=== PATIENT | female | born 1995 | race Caucasian/White ===

== ENCOUNTER 2023-08-28 16:29 | Day surgery (SDC) | payer BC, SELFPAY ==
[2023-08-28 16:32] VITALS: BP 130/82; PULSE 85; RESP 18; TEMP 36.4; O2SAT 98; BMI 25.0
--- NOTE | 2023-08-28 16:55 | CRLHL7_ITS ---
For Patients: As a result of the Century Cures Act, medical imaging exams and procedure reports are released immediately into your electronic medical record. You may view this report before your referring provider. If you have questions, please contact your health care provider. INDICATION: Bleeding in . TECHNIQUE: Ultrasound OB pelvis transvaginal. Real-time arias-scale imaging of the pelvis was performed. Permanently recorded images are archived. COMPARISON: None. FINDINGS: This is a 2.4 cm fluid collection within the endometrium with a thin echogenic rim, which could represent a poorly formed decidual reaction. No yolk sac or pole is identified within the fluid collection. There is heterogeneous echogenicity surrounding the fluid collection with questionable small cystic foci. Probable corpus luteum within the right ovary. Unremarkable left ovary. No significant free fluid within the pelvis. IMPRESSION: Abnormal exam. No intrauterine gestation identified. 2.4 cm fluid collection within the endometrium without definitive or normal appearing decidual reaction. In addition, the tissue surrounding the fluid collection is heterogeneous with small cystic areas. Differential considerations include a failed intrauterine gestation with a large surrounding subchorionic hemorrhage or a molar . Recommend correlation with beta HCG level/trend and gynecology consultation. Dictated by Charbel Dickens MD @ 08/28/2023 7:06:09 PM (Electronically Signed)
[2023-08-28 17:02] LABS: Basophils Absolute Auto 0.01 K/uL (0.00-0.30); Basophils Percent Auto 0.1 % (0.0-3.0); Eosinophils Percent Auto 1.1 % (0.0-7.0); Hemoglobin* 13.6 gm/dL (12.0-16.0); Immature Granulocytes Abs Auto 0.03 K/uL (0.00-0.30); Immature Granulocytes Pct Auto 0.3 %; Lymphocytes Percent Auto 17.1 % (20-44); Mean Corpuscular HGB Conc 33 gm/dL (32-36); Mean Corpuscular Hemoglobin 30 pg (26-34); Mean Corpuscular Volume 89 fL (80-100); Monocytes Percent Auto 5.2 % (0.0-11.0); Neutrophils Percent Auto 76.2 % (42.0-72.0); Platelet Count* 217 K/uL (140-440); Red Blood Count 4.61 m/uL (4.00-5.20); White Blood Count* 8.81 K/uL (4.50-11.00)
--- NOTE | 2023-08-28 17:04 | ED.PREGNANCY ---
HPI - General Time Seen by Provider: 17:04 Date Seen: 08/28/23 Chief complaint: Vaginal Bleeding Stated complaint: 11 wks preg-bleeding, cramping Time Seen by Provider: 08/28/23 16:35 Source: patient and RN notes reviewed Mode of arrival: ambulatory Limitations: no limitations History of Present Illness HPI Narrative: Went to see patient, ultrasound was already here to see the patient, will see her after she has had her ultrasound. Per nursing staff patient is experiencing vaginal bleeding, has not had an ultrasound yet. Feel it is important that she have the imaging done, will see her soon as she comes back to the department. Patient is a 28-year-old female that started to have some vaginal spotting with urination today. She states her menses were like this, she would just have some bleeding when she would urinate. She is having some cramping with some low back pain, does have some left-sided low abdominal pain. Patient states her last menstrual period was May 12 to May 17. She was scheduled to see someone for her 1st OB appointment coming up on September 11. She was seen in urgent care earlier in July and was having severe nausea vomiting, dry heaving. She thought she had a GI bug that was precipitated or worsened by . She has had 1 before, child is 8 years old. She has had no imaging prior to today. I was able to review the findings from the entry level assistant manager but cautioned patient that we need the radiologist over-read this. She is 15 weeks and 3 days based on her LMP but the ultrasound is showing no fetus there is a very irregular sac maybe measuring about 6 week in size. The entry level assistant manager did work wonder about the possibility of molar issues here. I have reviewed this with the patient and her male significant other that is here with her. We did review that molar pregnancies are aberrant tissue, there is no fetus currently. We really need the radiologist over read this. I will likely call the consulting database administrator on-call after I have talked to the patient and finished examining her. She understands she will likely get a chance to meet her hopefully at some point this evening. Complaint: abdominal pain and vaginal bleeding Date of last menstrual period: 05/12/23 Related Data : 2 Para: 1 Home Medications Medication Instructions Recorded Confirmed dextroamphetamine-amphetamine ER 1 cap PO BID 08/10/23 08/10/23 20 mg 24hr capsule,extend release multivitamin 1 tab PO QAM 08/10/23 08/10/23 vit B complex 100 combo no.2 100 tab PO 08/10/23 08/10/23 mg tablet,extended release (Balanced B-100 Complex) Allergies Allergy/AdvReac Type Severity Reaction Status Date / Time acetaminophen [From Vicodin] Allergy Verified 08/10/23 15:05 glucosamine Allergy Verified 08/10/23 15:05 hydrocodone [From Vicodin] Allergy Verified 08/10/23 15:05 Iodinated Contrast Media Allergy Verified 08/10/23 15:05 iodine Allergy Verified 08/10/23 15:05 levofloxacin Allergy Verified 08/10/23 15:05 metrizamide Allergy Verified 08/10/23 15:05 metronidazole Allergy Verified 08/10/23 15:05 morphine Allergy Verified 08/10/23 15:05 mushroom Allergy Verified 08/10/23 15:05 shellfish derived Allergy Verified 08/10/23 15:05 tree nut Allergy Verified 08/10/23 15:05 Review of Systems Status of ROS: Reports: 6 or more systems reviewed and unremarkable except as noted in History and below [facility] Medical History (Updated 08/28/23 @ 21:06 by Elidia Dyson MD) Exercise-induced asthma ?J45.990 - Exercise induced bronchospasm (ICD-10) Anemia ?D64.9 - Anemia, unspecified (ICD-10) CSF leak from nose ?G96.01 - Cranial cerebrospinal fluid leak, spontaneous (ICD-10) Meningitis (2017) ?G03.9 - Meningitis, unspecified (ICD-10) Surgical History (Updated 08/28/23 @ 21:06 by Elidia Dyson MD) History of section ?Z98.891 - History of uterine scar from previous surgery (ICD-10) Social History Smoking Status: Never smoker Do you use any of these nicotine containing products: None Second hand tobacco smoke exposure: No How often do you have a drink containing alcohol: monthly or less How many standard drinks containing alcohol do you have on a typical day: 1 or 2 How often do you have six or more drinks on one occasion: Never AUDIT-C Alcohol total score: 1 Non-prescribed substance use: denies use Little interest or pleasure in doing things: not at all Feeling down, depressed, or hopeless: not at all service: No Exam Const: Vital Signs, click to edit/add: Vital Signs - 24 hr 08/28/23 16:32 08/28/23 17:40 08/28/23 18:46 Temperature 97.5 F L Pulse Rate [Pulse Oximeter] 85 76 Respiratory Rate 18 18 Blood Pressure [Ri ght Upper Arm] 130/82 121/74 Pulse Oximetry 98 100 100 Oxygen Delivery Me thod Room Air Room Air 08/28/23 20:49 Temperature Pulse Rate [Pulse Oximeter] 69 Respiratory Rate 16 Blood Pressure [Ri ght Upper Arm] 105/65 Pulse Oximetry 98 Oxygen Delivery Me thod Room Air Anxious and tearful 28-year-old female but otherwise alert interactive. Certainly very pleasant. Sclera clear, conjugate gaze, face atraumatic. Neck supple, no masses noted. Lungs are clear, good air entry, no wheezing or crackles. CV regular rate and rhythm, no murmur, normal S1-S2, no S3 or S4. Patient is sitting a bit more upright on examination, abdomen is not tender, there is no rebound or guarding. The way she is sitting, do not feel any definitive organomegaly. Patient was ambulatory into the ED of her own accord. Documenting provider has reviewed patient's vital signs: yes Course Course ED Course: Will await her blood work, have ordered a CBC, blood type and quantitative hCG. We need to await the Radiology over-read. Will plan on talking to obstetrics. Consultations Consultation #1: Did speak with Dr. Dyson from OB. She and I both looked at the ultrasound, certainly seems abnormal. Her CBC is normal, waiting the quantitative hCG. She did ask that I order a TSH which I have added on. 1936pm Dr. Dyson here from OB, will be seeing patient and come up with formal plan for management. Time: 17:36 Consultation #2: Plan will be to admit patient for pain management overnight, D&C tomorrow during stability of full OR crew and hospital staff. Time: 20:33 Vital Signs Vital signs: Initial Vital Signs Temperature 97.5 F L 08/28/23 16:32 Temperature Source Temporal Artery Scan 08/28/23 16:32 Pulse Rate 85 08/28/23 16:32 Pulse Rhythm Regular 08/28/23 16:32 Respiratory Rate 18 08/28/23 16:32 Blood Pressure 130/82 08/28/23 16:32 Blood Pressure Mean 98 08/28/23 16:32 Blood Pressure Position Sitting 08/28/23 16:32 Pulse Oximetry 98 08/28/23 16:32 Oxygen Delivery Method Room Air 08/28/23 16:32 Vital Signs Temperature 97.5 F L 08/28/23 16:32 Pulse Rate 85 08/28/23 16:32 Respiratory Rate 18 08/28/23 16:32 Blood Pressure 130/82 08/28/23 16:32 Pulse Oximetry 98 08/28/23 16:32 Oxygen Delivery Method Room Air 08/28/23 16:32 Temperature 97.3 F L 08/29/23 00:45 Pulse Rate 69 08/29/23 00:45 Respiratory Rate 16 08/29/23 00:45 Blood Pressure 117/66 08/29/23 00:45 Pulse Oximetry 100 08/29/23 00:45 Oxygen Delivery Method Room Air 08/29/23 00:45 Medications Administered Medications: Generic Name Dose Route Start Last Admin Trade Name Fregracie PRN Reason Stop Dose Admin Fentanyl 25 mcg 08/28/23 22:14 08/28/23 23:21 Fentanyl 100 Mcg/2 Ml Inj IVP 25 mcg Q2H PRN Administration Lactated Ringer's 1,000 mls @ 125 mls/hr 08/28/23 22:15 08/28/23 23:20 Lactated Ringers 1000 Ml IV 125 mls/hr .Q8H SANCHEZ Administration Discontinued Medications Generic Name Dose Route Start Last Admin Trade Name Fregracie PRN Reason Stop Dose Admin Acetaminophen 1,000 mg 08/28/23 18:24 08/28/23 18:31 Acetaminophen 500 Mg Tablet PO 08/28/23 18:25 1,000 mg ONCE ONE Administration Fentanyl 50 mcg 08/28/23 20:30 08/28/23 20:47 Fentanyl 100 Mcg/2 Ml Inj IVP 08/28/23 20:31 50 mcg ONCE ONE Administration Ondansetron HCl 4 mg 08/28/23 20:30 08/28/23 20:47 Ondansetron 2 Mg/Ml Inj IVP 08/28/23 20:31 4 mg ONCE ONE Administration MDM - OB/Uterine Contractions Lab Data Attestation: I reviewed the patient's lab results. Labs: Lab Results 08/28/23 08/28/23 Range/Units 16:58 17:47 WBC 8.81 (4.50-11.00) K/uL RBC 4.61 (4.00-5.20) m/uL Hgb 13.6 (12.0-16.0) gm/dL Hct 41.0 (33.0-51.0) % MCV 89 (80-100) fL MCH 30 (26-34) pg MCHC 33 (32-36) gm/dL RDW Coeff of Al 13.0 (11.5-15.5) % Plt Count 217 (140-440) K/uL Neut % (Auto) 76.2 H (42.0-72.0) % Lymph % (Auto) 17.1 L (20-44) % Stanton % (Auto) 5.2 (0.0-11.0) % Eos % (Auto) 1.1 (0.0-7.0) % Baso % (Auto) 0.1 (0.0-3.0) % Neut # (Auto) 6.70 (1.7-7.0) K/uL Lymph # (Auto) 1.50 (0.90-2.90) K/uL Stanton # (Auto) 0.50 (0.00-0.90) K/UL Eos # (Auto) 0.10 (0.00-0.50) K/uL Baso # (Auto) 0.01 (0.00-0.30) K/uL Abs Immat Gran (auto) 0.03 (0.00-0.30) K/uL Imm/Tot Granulo (auto) 0.3 % TSH 1.480 (0.270-4.20) uIU/mL HCG, Quant 7880.40 mIU/mL Lab Acknowledgement Test Added Blood Type A Negative Imaging Data US OB limited: Attestation: I have reviewed the pertinent imaging results. Radiologist's impression: Patient: MASSIMO LEMUS Facility:?[facility] Patient ID:?[id number] Site Patient ID:?[id number]. Site :?[id number] Study:?US OB Pelvis -08/28/2023 5:34:33 PM Ordering Physician:Abrahan Irwin Final Report: INDICATION: Bleeding in . TECHNIQUE: Ultrasound OB pelvis transvaginal. Real-time arias-scale imaging of the pelvis was performed. Permanently recorded images are archived. COMPARISON: None. FINDINGS: This is a 2.4 cm fluid collection within the endometrium with a thin echogenic rim, which could represent a poorly formed decidual reaction. No yolk sac or pole is identified within the fluid collection. There is heterogeneous echogenicity surrounding the fluid collection with questionable small cystic foci. Probable corpus luteum within the right ovary. Unremarkable left ovary. No significant free fluid within the pelvis. IMPRESSION: Abnormal exam. No intrauterine gestation identified. 2.4 cm fluid collection within the endometrium without definitive or normal appearing decidual reaction. In addition, the tissue surrounding the fluid collection is heterogeneous with small cystic areas. Differential considerations include a failed intrauterine gestation with a large surrounding subchorionic hemorrhage or a molar . Recommend correlation with beta HCG level/trend and gynecology consultation. Dictated by Charbel Dickens MD @ 08/28/2023 7:06:09 PM (Electronic Signature) Discharge Plan Discharge Clinical Impression: Molar Patient Disposition: Admitted As Observation
[2023-08-28 17:16] LABS: Slide Review Reflex No
[2023-08-28 17:40] VITALS: O2SAT 100
--- OUTSIDE RECORDS SUMMARY | 2023-08-28 18:14 | XMS_ITS | Continuity of Care Document ---
Author Name Unknown Organization [facility] Address [address] [place] [address] Phone Care Team Providers Care [employer] Scout Name Role Phone Diogenes Thomas Unavailable Unavailable Procedures Procedure Date Initial Hospital Care, Low Advance Directives Directive Yes / No Effective Date File Name No Information Encounters Encounter Description Practice Location Reason(s) For Visit Diagnoses Date Provider Providers Copied on Encounter Initial Hospital Care, [facility], [address], [place], [place], [id number], [place] tel:[phone] [facility] No Information Chris Shetty. [facility], [address], [place], [place], [id number], [place]. tel:[phone] Referring Provider: Reji Paredes, [employer] [address] [facility] [address], [place], [address]. tel:[phone] Family History Family Member Type Diagnosis Age At Onset No Information Payers Payer name Insurance type Covered libertarian ID Ian blakeelizabeth(s) [employer] ([employer]H) [id number] Social History Type Description Quantity Date Captured Comments Sex Female Smoking Status No Information Chief Complaint And Reason For Visit No Information Reason For Referral Reason For Referral No Information History Of Present Illness Encounter Date Complaint History Of Prese nt Illness No Information Functional Status Date Functional Assessmen t No Information Instructions Date Instruction Additional Infor mation No Information Assessments Type Assessment Date No Information Patient Care Teams Name Effective Dates (start - stop) Status Members No Information
--- OUTSIDE RECORDS SUMMARY | 2023-08-28 18:14 | XMS_ITS | Continuity of Care Document ---
Author Name Unknown Organization [facility] Address [address] [place] [address] Phone Care Team Providers Care Hospice Chaplain Name Role Phone Diogenes Thomas Unavailable Unavailable Procedures Procedure Date Initial Hospital Care, Low Advance Directives Directive Yes / No Effective Date File Name No Information Encounters Encounter Description Practice Location Reason(s) For Visit Diagnoses Date Provider Providers Copied on Encounter Initial Hospital Care, [facility] [facility], [address], [place], [place], [id number], [place] tel:[phone] [facility] [place] [facility] No Information Chris Shetty. [facility], [address], [place], [place], [id number], [place]. tel:[phone] Referring Provider: Reji Paredes, [facility] [address] [facility] [address], [address]. tel:[phone] Family History Family Member Type Diagnosis Age At Onset No Information Payers Payer name Insurance type Covered republican ID Ian blakeelizabeth(s) [employer] [id number] Social History Type Description Quantity Date Captured [...]
[2023-08-28] MEDS: ACETAMINOPHEN 500 MG TABLET 1000 MG PO (18:31)
[2023-08-28 18:46] VITALS: BP 121/74; PULSE 76; RESP 18; O2SAT 100
--- NOTE | 2023-08-28 20:08 | ED.NURSE ---
pt report given off to oncoming RN
--- NOTE | 2023-08-28 20:24 | P.GYNCN_ITS ---
TOGGLE PRESS OPERATOR - CN: HPI Data of Consult Time Seen by Provider: 20:00 Date Seen: 08/28/23 Patient: Other Consult date: 08/28/23 Requesting Physician: Alida Palmer MD Primary Care Provider: Not a Local Provider Consult Narrative Reason for consult: vaginal bleeding and early complication Narrative: Queenie Robledo is a 28 year old female who presented to the emergency room complaining of bleeding in early . She thought she was approximately 11 weeks along. By last menstrual period, her estimated gestational age is 15 3/7 weeks. She has not yet established care, and is scheduled for a 1st OB visit on September 11 in [place] with a certified nurse sleeve fixer. The patient was not using contraception at the time of conception. She denies any issues during early . She was seen in urgent care on 08/10/2023 for chest pain, chest tightness or shortness of breath, and cough. She was thought to have a viral upper respiratory infection as well as yeast vaginitis. Conservative management was recommended. Her symptoms resolved spontaneously. Last menstrual period began on 05/12/2023. She states that she was menstruating at regular monthly intervals prior to conception. She thought she was about 11 weeks gestation by her presumed conception date. Planned . She has had some nausea and vomiting throughout the 1st trimester. She was working today, and developed some low abdominal cramping and back pain. This afternoon, she was alarmed to notice some vaginal bleeding when she went to the bathroom. She denies fevers or chills, dysuria, or current nausea and vomiting. She is hungry, having not eaten lunch or dinner today. She denies headaches, palpitations or current chest pain or shortness of breath. She felt a little warm and flushed while we were talking, but it attributes that to anxi ety. OBSTETRIC HISTORY: The patient had a primary delivery for breech at term 8 years ago. course was complicated by separation of her Pfannenstiel incision, and she needed a wound VAC for about 3 weeks. Past medical history is significant for ADHD and exercise-induced asthma. She had anemia during and immediately with her last . 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 She has stated allergies to levofloxacin and morphine. EMR also lists reactions to glucosamine, hydrocodone, iodinated contrast media, metrizamide, metronidazole, mushrooms, shellfish, and tree nuts. The patient was found to be hemodynamically stable upon her arrival to the emergency department. Labs were notable for an HCG level of 7880.4, blood type A negative, hemoglobin 13.6, platelets 217, and TSH 1.48. A limited OB ultrasound was performed which demonstrated a 2.4 cm fluid collection within the endometrium with a thin echogenic rim and surrounding heterogeneous echogenicity with questionable small cystic foci concerning for molar . There was no evidence of yolk sac or pole. There was a probable corpus luteum cyst within the right ovary an unremarkable left ovary. No significant free fluid was seen in the pelvis. cc:: CC: Review of Systems Status of ROS: Reports: 10 or more systems reviewed and unremarkable except as noted in History and below [facility] Medical History (Updated 08/28/23 @ 21:06 by Elidia Dyson MD) Exercise-induced asthma ?J45.990 - Exercise induced bronchospasm (ICD-10) Anemia ?D64.9 - Anemia, unspecified (ICD-10) CSF leak from nose ?G96.01 - Cranial cerebrospinal fluid leak, spontaneous (ICD-10) Meningitis (2017) ?G03.9 - Meningitis, unspecified (ICD-10) Surgical History (Updated 08/28/23 @ 21:06 by Elidia Dyson MD) History of section ?Z98.891 - History of uterine scar from previous surgery (ICD-10) Social History Smoking Status: Never smoker Do you use any of these nicotine containing products: None Second hand tobacco smoke exposure: No How often do you have a drink containing alcohol: monthly or less How many standard drinks containing alcohol do you have on a typical day: 1 or 2 How often do you have six or more drinks on one occasion: Never AUDIT-C Alcohol total score: 1 Non-prescribed substance use: denies use Little interest or pleasure in doing things: not at all Feeling down, depressed, or hopeless: not at all service: No Meds Home Medications and Allergies Home Medications Medication Instructions Recorded Confirmed Type dextroamphetamine-amphetamine ER 1 cap PO BID 08/10/23 08/10/23 History 20 mg 24hr capsule,extend release multivitamin 1 tab PO QAM 08/10/23 08/10/23 History vit B complex 100 combo no.2 100 tab PO 08/10/23 08/10/23 History mg tablet,extended release (Balanced B-100 Complex) Allergies Allergy/AdvReac Type Severity Reaction Status Date / Time acetaminophen [From Vicodin] Allergy Verified 08/10/23 15:05 glucosamine Allergy Verified 08/10/23 15:05 hydrocodone [From Vicodin] Allergy Verified 08/10/23 15:05 Iodinated Contrast Media Allergy Verified 08/10/23 15:05 iodine Allergy Verified 08/10/23 15:05 levofloxacin Allergy Verified 08/10/23 15:05 metrizamide Allergy Verified 08/10/23 15:05 metronidazole Allergy Verified 08/10/23 15:05 morphine Allergy Verified 08/10/23 15:05 mushroom Allergy Verified 08/10/23 15:05 shellfish derived Allergy Verified 08/10/23 15:05 tree nut Allergy Verified 08/10/23 15:05 TOGGLE PRESS OPERATOR - Exam Physical Exam: Vital signs: Temp Pulse Resp BP Pulse Ox O2 Del Method 97.5 F L 76 18 121/74 100 Room Air 08/28/23 16:32 08/28/23 18:46 08/28/23 18:46 08/28/23 18:46 08/28/23 18:46 08/28/23 18:46 Constitutional: Constitutional: no acute distress and cooperative Routine Respiratory Exam: Respiratory: Present CTA bilaterally Routine Cardiovascular Exam: Cardiovascular: Present RRR Routine Abdominal Exam: Abdominal: Present soft and tenderness (Diffusely, left greater than right); Absent guarding or rebound Routine Exam: Comments: Normal external female genitalia. On bimanual exam, the uterus is mildly enlar ged, 15-16 week size, and tender. Adnexa could not be fully palpated due to patient discomfort. Routine Extremities Exam: Extremities: Present normal inspection Routine Skin Exam: Skin: Present intact Routine Neurological Exam: Neurological: Present alert and oriented X3 Routine Psychiatric Exam: Psychiatric: Present anxious TOGGLE PRESS OPERATOR - Results Labs Labs: Short CBC 08/28/23 Range/Units 16:58 WBC 8.81 (4.50-11.00) K/uL Hgb 13.6 (12.0-16.0) gm/dL Hct 41.0 (33.0-51.0) % Plt Count 217 (140-440) K/uL Assessment and Plan Assessment and plan (1) Molar : Status: Acute Plan 1. The patient will be admitted for pain control overnight. Pain medications overnight can include IV fentanyl. 2. I explained the diagnosis to the patient. Based on her imaging studies, it appears that she has a molar . We discussed molar pregnancies, both complete and partial, and the risk of developing gestational trophoblastic neoplasia untreated. Evacuation of the uterus is recommended for treatment, along with a period of monitoring of HCG levels. The length of monitoring that will be recommended will be dependent on the final pathology report. The patient understands that this will delay future childbearing until the end of the monitoring period. Because she is in the 2nd trimester at the time of diagnosis, she is at risk for hemorrhage or cardiopulmonary complications at the time of surgery. Prophylactically, utero tonic medications would be recommended, such as IV Pitocin with IV fluids, preoperative tranexamic acid, and availability of medications such as Methergine or misoprostol. We also discussed the possibility of intrauterine balloon tamponade if needed, or even uterine artery ligation or hysterectomy if she were to experience life- threatening hemorrhage during surgery that could not be controlled with more conservative measures. From Up-To-Date, ...in the second trimester, approximately 2 percent of patients treated by evacuation develop cardiopulmonary symptoms, including chest pain, dyspnea, tachypnea, and tachycardia. Respiratory distress after uterine evacuation is usually attributed to trophoblastic embolization. Respiratory problems can also be due to massive fluid replacement, complications of thyroid storm, or preeclampsia... At this time, the patient has no signs or symptoms of preeclampsia, and her TSH level is normal, however, given the potential risks of bleeding and cardiopulmonary problems, I believe that surgery would be best done during the daytime hours when there are additional personnel available in the event of an emergency. 3. The patient and I discussed the suction curettage procedure in some detail. If all goes well, she potentially could be discharged the same day as surgery. She will need to be NPO after midnight in preparation for surgery. Because I will not be available tomorrow, I have discussed this patient with my partner, Dr. Rendon, who will be assuming care in the morning. The household assistant was notified of the pending admission and request for surgery tomorrow, and will contact the OR regarding scheduling.
[2023-08-28] MEDS: ONDANSETRON 2 MG/ML inj 4 MG IVP (20:47)
[2023-08-28] MEDS: fentaNYL 100 MCG/2 ML inj 50 MCG IVP (20:47)
[2023-08-28 20:49] VITALS: BP 105/65; PULSE 69; RESP 16; O2SAT 98
[2023-08-28] MEDS: LACTATED RINGERS 1000 ML 1,000 ML 125 ML IV (23:20)
[2023-08-28] MEDS: fentaNYL 100 MCG/2 ML inj 25 MCG IVP (23:21)
[2023-08-29] VITALS (28 sets, daily range): BP systolic 102–120; BP diastolic 51–74; PULSE 52–97; RESP 14–20; TEMP 36.1–36.8; O2SAT 97–100; BMI 24.7
[2023-08-29] MEDS: fentaNYL 100 MCG/2 ML inj 25 MCG IVP ×3 (03:07→19:41)
--- NOTE | 2023-08-29 07:36 | PC.NURSE ---
End of shift [id number] ? Pt arrived from ED at approximately 21:20. Spouse at bedside. Pt alert, oriented, and cooperative. Up independently in room and to bathroom. Pt reported pain in lower back and abdomen that increased when up to the bathroom. Pain managed with interventions in MAR and aqua K pad with verbalized improvement. Pt reports scant bloody discharge in pad and moderate amount of bloody discharge while using bathroom. VSS, afebrile during shift. Tolerating NPO diet and room air. Pt appears anxious and tearful when discussing current , RN able to provide verbal support. Pt observed to sleep during shift, appears to be resting comfortably at end of shift. ?
[2023-08-29] MEDS: LACTATED RINGERS 1000 ML 1,000 ML 125 ML IV (07:47)
--- OUTSIDE RECORDS SUMMARY | 2023-08-29 09:17 | XMS_ITS | Continuity of Care Document ---
Author Name Unknown Organization [facility] Address [address] [place] [address] Phone Care Team Providers Care Rags Laborer Name Role Phone Diogenes Thomas Unavailable Unavailable Procedures Procedure Date Initial Hospital Care, Low Advance Directives Directive Yes / No Effective Date File Name No Information Encounters Encounter Description Practice Location Reason(s) For Visit Diagnoses Date Provider Providers Copied on Encounter Initial Hospital Care, [facility], [address], [place], [place], [id number], [place] tel:[phone] [facility] No Information Chris Shetty. [facility], [address], [place], [place], [id number], [place]. tel:[phone] Referring Provider: Reji Paredes, [employer] [address] [facility] [address], [place], [address]. tel:[phone] Family History Family Member Type Diagnosis Age At Onset No Information Payers Payer name Insurance type Covered democrat ID Ian blakeelizabeth(s) [employer] [id number] Social History Type Description Quantity Date Captured [...]
[2023-08-29] MEDS: ONDANSETRON 2 MG/ML inj 4 MG IVP ×2 (09:27→12:55)
--- NOTE | 2023-08-29 10:53 | P.GYNPN_ITS ---
Progress Note: A&P Assessment and plan (1) Molar : Status: Acute Assessment and Plan: Suspected on US. Plan is for suction uterine curettage under ultrasound guidance today. We discussed risks of procedure, including bleeding, hemorrhage requiring transfusion, infection, uterine perforation, risk of persistent gestational trophoblastic neoplasia, and cardiopulmonary collapse. We discussed the need for monitoring of HCG levels weekly after this procedure. We discussed likely postoperative recovery and restrictions. Consent form was reviewed with and signed by patient. In preparation for surgery, I have requested 2 units of cross-matched packed red blood cells. I plan to use tranexamic acid after induction of anesthesia. I have spoken to my Anesthesia colleagues about the risks inherent in management of molar , and they plan to use general anesthesia for this patient. I will use rectal misoprostol at end procedure, and IV Pitocin will be prepared. Doxycycline for preoperative prophylaxis. If this is truly a molar , there is to production of RBCs. Given that we have no certainty of this at this moment, I did opt to give patient RhoGam. Given her uncertain postoperative course, and the possibility of complications, I recommended change to medical-surgical recovery as her status. (2) Pelvic pain: Status: Acute VETERINARY X RAY OPERATOR- PN:Subj Non-OR Subjective Time Seen by Provider: 08:30 Date Seen: 08/29/23 Interval history: Queenie is a 28-year-old woman on hospital day #2 after admission for pelvic pain and uterine bleeding in the setting of suspected molar in the second trimester. She has been NPO since midnight. She continues to have some LLQ pain. She is accompanied by her and [id number]. She had some SOB a few weeks ago, none current. VETERINARY X RAY OPERATOR-PN: Obj Exam Physical Exam: Vital signs: Temp Pulse Resp BP Pulse Ox O2 Del Method 97.9 F 60 16 107/61 100 Room Air 08/29/23 07:00 08/29/23 07:00 08/29/23 07:00 08/29/23 07:00 08/29/23 07:00 08/29/23 07:00 Narrative: General: Pleasant, no acute distress Heart: Regular rate and rhythm, no murmur or gallop Lungs: Clear to auscultation bilaterally Abdomen: Soft, uterine fundus palpable approximately 5 cm below umbilicus, tender to the touch. Lower extremities: No edema or erythema VETERINARY X RAY OPERATOR - PN: Obj Data Labs Labs: Laboratory Results - last 24 hr 08/28/23 08/28/23 16:58 17:47 WBC 8.81 RBC 4.61 Hgb 13.6 Hct 41.0 MCV 89 MCH 30 MCHC 33 RDW Coeff of Al 13.0 Plt Count 217 Neut % (Auto) 76.2 H Lymph % (Auto) 17.1 L Johnston % (Auto) 5.2 Eos % (Auto) 1.1 Baso % (Auto) 0.1 Neut # (Auto) 6.70 Lymph # (Auto) 1.50 Johnston # (Auto) 0.50 Eos # (Auto) 0.10 Baso # (Auto) 0.01 Abs Immat Gran (auto) 0.03 Imm/Tot Granulo (auto) 0.3 TSH 1.480 HCG, Quant 7880.40 Lab Acknowledgement Test Added Blood Type A Negative Crossmatch (AHG) See Detail Imaging US - abdomen: Attestation: I have reviewed the pertinent imaging results. My impression: The endometrial stripe is indistinct and markedly thickened in the fundal region. Uterus is enlarged and retroverted. Radiologist's impression: FINDINGS: This is a 2.4 cm fluid collection within the endometrium with a thin echogenic rim, which could represent a poorly formed decidual reaction. No yolk sac or pole is identified within the fluid collection. There is heterogeneous echogenicity surrounding the fluid collection with questionable small cystic foci. Probable corpus luteum within the right ovary. Unremarkable left ovary. No significant free fluid within the pelvis. IMPRESSION: Abnormal exam. No intrauterine gestation identified. 2.4 cm fluid collection within the endometrium without definitive or normal appearing decidual reaction. In addition, the tissue surrounding the fluid collection is heterogeneous with small cystic areas. Differential considerations include a failed intrauterine gestation with a large surrounding subchorionic hemorrhage or a molar . Recommend correlation with beta HCG level/trend and gynecology consultation.
[2023-08-29] MEDS: LACTATED RINGERS 1000 ML 1,000 ML 75 ML IV (11:40)
[2023-08-29] MEDS: DOXYCYCLINE HYCLATE 200 MG in 0.9 % SODIUM CHLORIDE 250 ml 250 ML 250 MG IVPB (12:05)
--- NOTE | 2023-08-29 12:48 | W.ANESCHARGE ---
Anesthesia Charges Start Date/Time Anesthesia Start Date: 08/29/23 Anesthesia Start Time: 11:40 Stop Date/Time Anesthesia Stop Date: 08/29/23 Anesthesia Stop Time: 12:39 Summary Emergency: NURSE HEALTHCARE MANAGER
[2023-08-29] MEDS: fentaNYL 100 MCG/2 ML inj 50 MCG IVP (13:08)
[2023-08-29] MEDS: LACTATED RINGERS 1000 ML 1,000 ML 35 ML IV (13:17)
--- NOTE | 2023-08-29 13:17 | P.GYNPRC_ITS ---
Procedure Note Date of procedure: 08/29/23 Procedure Description: Preoperative diagnosis: Incomplete , suspected molar Postoperative diagnosis: Same Procedure: Suction uterine curettage under ultrasound guidance Surgeon: Elo Rendon MD Anesthesia: General IV fluids: 600 mL crystalloid EBL: 20 mL Urine output: 30 mL Findings: 1. Exam under anesthesia revealed a mobile, retroverted uterus that was consistent in size with 12 weeks' gestation. There are no palpable adnexal m asses. 2. Moderate amount of products of conception returned with suction curettage. Complications: None Procedure in detail: Patient was taken to the operating with IV running. She had received a single dose of IV doxycycline in preoperative prophylaxis. She was placed in dorsal lithotomy position. General anesthesia was administered. She was prepped and draped in the usual sterile fashion. Exam under anesthesia was performed for the above-noted findings. Speculum was inserted. Cervix was grasped along its anterior lip with single-tooth tenaculum. The cervix was serially dilated to 11 [place]. A size 10 rigid suction cannula was then passed through the cervix to the uterine fundus. Suction was applied, and the suction cannula was withdrawn along the path of insertion. This was repeated several more times, without obvious return of products of conception on the last 2 passes. Ultrasound images revealed a thin, uniform appearance to the endometrial stripe. Procedure was deemed complete. The tenaculum was removed from the anterior lip the cervix, and hemostasis was achieved with a combination of pressure with ring forceps and silver nitrate. The speculum was then removed from the vagina. Patient tolerated procedure well and was taken recovery area in stable condition.
[2023-08-29] MEDS: KETOROLAC 30 MG/ML inj IVP ×2 (14:36→20:56)
[2023-08-29 15:15] LABS: Albumin* 4.3 g/dL (3.3-5.0); Chloride* 108 mmol/L (96-114); Sodium* 137 mmol/L (135-149)
[2023-08-29 15:17] LABS: Creatinine* 0.4 mg/dL (0.5-1.5); Est. Creatinine Clearance* 194.27; Estimated Glomerular Filt Rate 137 ml/min
[2023-08-29 15:18] LABS: Alanine Aminotransferase* 20 U/L (4-35); Alkaline Phosphatase* 45 U/L (40-150); Anion Gap 7 mEq/L (7-15); Aspartate Amino Transferase* 35 U/L (12-35); Bilirubin Total* 0.6 mg/dL (0.1-1.5); Blood Urea Nitrogen* 7 mg/dL (5-24); Calcium* 8.8 mg/dL (8.4-10.6); Carbon Dioxide* 22 mmol/L (20-32); Glucose* 85 mg/dL (60-115); Potassium* 4.5 mmol/L (3.6-5.1); Total Protein* 7.2 g/dL (6.0-8.3)
[2023-08-29] MEDS: OXYCODONE 5 MG TABLET PO ×2 (17:20→21:17)
--- NOTE | 2023-08-29 18:26 | CRLHL7_ITS ---
For Patients: As a result of the Century Cures Act, medical imaging exams and procedure reports are released immediately into your electronic medical record. You may view this report before your referring provider. If you have questions, please contact your health care provider. INDICATION: Pelvic pain. TECHNIQUE: CT abdomen and pelvis without contrast. Permanently recorded images are archived. COMPARISON: Pelvic ultrasound 08/28/2023. FINDINGS: Lower chest: Small area of tree-in-bud nodules within the right lower lobe centrally. Liver: Normal in size and attenuation. No suspicious masses. Gallbladder and bile ducts: No stones or inflammation. No biliary dilatation. Pancreas: Unremarkable. No mass or inflammation. Spleen: Normal in size. No masses. Adrenal glands: Normal in size. No nodules. Kidneys, Ureters, and Bladder: Punctate nonobstructing left nephrolith in the superior pole. Unremarkable ureters. Normal bladder. GI tract: Unremarkable. Normal in caliber. No sign of inflammation. Normal appendix. Vasculature: Abdominal aorta is normal in caliber. Lymph nodes: No lymphadenopathy. Peritoneum/Abdominal Wall: Unremarkable. No free air or significant free fluid. Pelvis: Band of hyperdensity along the posterior vaginal wall of unclear etiology. No pelvic masses. Bones: Unremarkable for age. IMPRESSION: No acute findings within the abdomen and pelvis on this noncontrast exam. Punctate nonobstructing nephrolith in the left kidney. No adnexal mass visualized. Band of hyperdensity along the posterior vaginal wall of unclear etiology. Possibly postprocedural or sequela of prior trauma. Recommend correlation with clinical history. Small area of tree-in-bud nodules within the right lower lobe centrally, most likely representing focal bronchiolitis. Please note that all CT scans at this facility use dose modulation, iterative reconstruction, and/or weight-based dosing when appropriate to reduce radiation dose to as low as reasonably achievable. Dictated by Charbel Dickens MD @ 08/29/2023 8:07:15 PM (Electronically Signed)
--- NOTE | 2023-08-29 18:27 | PM.GYNPNPO ---
FORGE OPERATOR HELPER - A/P Assessment and plan (1) Molar : Status: Acute Assessment and Plan: Suspected on imaging. Now status post uncomplicated suction uterine curettage. (2) Pelvic pain: Status: Acute Assessment and Plan: Present before suction curettage, and continuing after. I no longer suspect uterine pathology as the cause in her case. Early endometritis is possible, though very unlikely, especially in the absence of fever. Will repeat CBC in AM. Otherwise, given suprapubic and back pain, will look for urinary etiology. UA, urine culture, and CT of abd/pelvis ordered. Given continuing pain, suboptimal ambulation and intolerance of oral intake, will continue in hospital overnight. Postoperative Procedures: Procedures Operation Date: 08/29/23 12:00 Actual Procedure Side Surgeon p Suction Dilatation & Curettage Not Applicable Elo Rendon MD Postoperative day: 0 Postoperative status: marginal pain control Time Spent With Patient Time: Total time spent is greater than 50% in coordination of care (as documented) at patient's floor/unit and/or counseling patient: Time with patient: 25 - 35 minutes FORGE OPERATOR HELPER- PN:Subj Post-Op Subjective Date Seen: 08/29/23 Interval history: Queenie is a 28-year-old woman on hospital day #2 after admission for pelvic pain and uterine bleeding in the setting of suspected molar in the second trimester. She is now status post suction uterine curettage under ultrasound guidance earlier this morning. Unfortunately, she continues to complain of pain low in her central pelvis. Pain is worse with urination. She also continues to have lower back pain. She has very scant vaginal bleeding. She did feel somewhat dizzy upon rising to urinate. She has been able to tolerate only a little bit of oral intake, as this makes her middle abdomen tender. She was struggling with nausea as well. Post Operative Details: Post-operative day number 0: status post suction uterine curettage FORGE OPERATOR HELPER-PN: Obj Exam Physical Exam: Vital signs: Temp Pulse Resp BP Pulse Ox O2 Del Method 97.0 F L 56 L 16 112/66 99 Room Air 08/29/23 14:18 08/29/23 14:18 08/29/23 14:18 08/29/23 14:18 08/29/23 13:30 08/29/23 14:18 Narrative: Physical exam: Vitals as noted above. General: No acute distress Psych: Alert and oriented x 3, full affect, appears anxious HEENT: Normocephalic, atraumatic Abdomen: Soft, superpubic tenderness noted, no rebound, or guarding, no masses, no hepatosplenomegaly, no hernias Back: Some tenderness bilaterally in the vicinity of the lumbar paraspinal muscles Urinary Catheter Management: urethra: Cath placed during this visit: yes Urethral indwelling: No Insertion date: 08/29/23 Insertion time: 12:06 FORGE OPERATOR HELPER - PN: Obj Data Labs Labs: Laboratory Results - last 24 hr 08/28/23 08/29/23 16:58 14:27 Sodium 137 Potassium 4.5 Chloride 108 Carbon Dioxide 22 Anion Gap 7 BUN 7 Creatinine 0.4 L Estimated Creat Clear 194.27 Estimated GFR 137 Glucose 85 Calcium 8.8 Total Bilirubin 0.6 AST 35 ALT 20 Alkaline Phosphatase 45 Total Protein 7.2 Albumin 4.3 TSH 1.480 Blood Type A Negative Antibody Screen NEGATIVE Crossmatch (AHG) See Detail
--- NOTE | 2023-08-29 20:41 | PC.NURSE ---
End of shift-- Pleasant and cooperative, alert and oriented patient. Appropriately tearful and anxious. VSS and pt is afebrile. SPO2 maintained >94% on RA. Pt was sent to OR at 1130 and returned at 1337. Pt has c/o abdominal pain this evening and Dr. Rendon was notified. Pt was given Toradol and Oxycodone and order for Fentanyl was received. Pt initially c/o dry heaving, but it resolved with aromatherapy prior to giving Phenergan. LS CTA. BS+ x4 and pt tolerated a regular diet this evening. Family is at bedside and appear loving and supportive. She was up to commode and BR post-operatively with SBA. She did c/o some dizziness when up this evening. Dr. Rendon was at bedside this evening and orders for CT scan and Cath UA/UC were received. Report to BE Glynn.
[2023-08-29 21:18] LABS: Appearance Urine Clear (Clear); Bilirubin Urine Negative (Negative); Blood Urine Negative (Negative); Color Urine Yellow (Yellow); Glucose Urine Negative (Negative); Ketones Urine Negative (Negative); Leukocyte Esterase Urine Negative (Negative); Nitrite Urine Negative (Negative); Protein Urine Negative (Negative); Specific Gravity Urine 1.015 (1.000-1.030); Urobilinogen Urine 0.2 (0.2-1.0); pH Urine 7.5 (5.0-8.5)
[2023-08-29 21:24] LABS: RBC Urine 0-2 (0-2); WBC Urine 0-2 (0-5)
[2023-08-30] MEDS: KETOROLAC 30 MG/ML inj IVP (02:32)
[2023-08-30 03:00] VITALS: BP 93/40; PULSE 53; RESP 14; TEMP 36.4; O2SAT 98
--- NOTE | 2023-08-30 05:45 | PC.NURSE ---
End of shift report [id number]: Pain to left abdomen radiating from hip to rib cage, patient recieved PRN IV fentanyl per order at 1940, at 2109 patient received PRN oxycodone. Slept well, denied pain throughout the overnight hours Straight catheter completed at 2100 for UA/UC specimen. Dr. Rendon notified of CT results as well as UA results, MD also updated on patient's current pain and effectiveness of PRN medications. Scant amount of vaginal bleeding noted on pad.
[2023-08-30 06:45] LABS: Eosinophils Absolute Auto 0.01 K/uL (0.00-0.50); Eosinophils Percent Auto 0.1 % (0.0-7.0); Hemoglobin* 11.6 gm/dL (12.0-16.0); Immature Granulocytes Abs Auto 0.03 K/uL (0.00-0.30); Immature Granulocytes Pct Auto 0.3 %; Lymphocytes Percent Auto 12.2 % (20-44); Mean Corpuscular HGB Conc 34 gm/dL (32-36); Mean Corpuscular Hemoglobin 30 pg (26-34); Mean Corpuscular Volume 87 fL (80-100); Neutrophils Percent Auto 80.4 % (42.0-72.0); Platelet Count* 184 K/uL (140-440); RDW Coefficient of Variation % 12.9 % (11.5-15.5); Red Blood Count 3.89 m/uL (4.00-5.20); White Blood Count* 10.94 K/uL (4.50-11.00)
[2023-08-30 06:58] LABS: Slide Review Reflex No
--- NOTE | 2023-08-30 08:28 | PM.GYNDS1 ---
DS: Providers Provider Time Seen by Provider: 07:30 Date Seen: 08/30/23 Primary care physician: Not a Local Provider Attending Physician on discharge: Dennise Burns MD DS: Diagnosis Discharge Diagnosis (1) Missed : Status: Acute (2) Pelvic pain: Status: Acute (3) Molar : Status: Acute (4) Vomiting or nausea of : Status: Acute OPERATING SYSTEMS PROGRAMMER-Discharge Summary Hospital Course Hospital Course Narrative: Patient is a 28 year old admitted on 08/28 for pelvic pain and vaginal bleeding in this setting of missed suspicious for molar gestation. Indication for surgery: Suspected molar gestation. She underwent a suction dilation curettage under ultrasound guidance with Dr. Rendon on 08/29/2023. Surgery was uncomplicated. Intraoperative findings were unremarkable, please see her operative note for complete details. Postoperative course was notable for increased pain compared to anticipated for surgery, greatest at the left flank. She underwent a CT abdomen and pelvis and laboratory monitoring on the evening of surgery, which was essentially negative for acute pathologies. There was evidence of a punctate nonobstructing left nephrolith in the superior pole of the kidney, which was possibly contributing her left flank pain. Regardless, her pain control has improved significantly overnight. Vitals have been stable. She has remained afebrile. Today, on postoperative day 1, she reports the pain is well controlled. Pain is rated as a 4/10 in severity, last IV narcotic use at 1730 yesterday evening. She has been able to ambulate Without difficulty. She is tolerating regular diet. She is passing flatus. Pena catheter has been removed, and she is voiding without difficulty. Has had minimal vaginal bleeding. We reviewed the importance of contraception given possible molar gestation. She is not interested in hormonal contraception at this time, plans to utilize condoms. Encouraged pelvic rest x2 weeks. Explained that pathologic evaluation well be critical to follow, given concern for suspected molar gestation. If molar gestation is confirmed on pathology, explained that her follow-up would include weekly HCGs to 0 given malignant transformation potential. [address] Rendon. Time Spent with Patient Time attestation: Total time spent providing and/or coordinating discharge services: OPERATING SYSTEMS PROGRAMMER - Exam Physical Exam: Vital signs: Temp Pulse Resp BP Pulse Ox O2 Del Method 97.5 F L 53 L 14 93/40 L 98 Room Air 08/30/23 03:00 08/30/23 03:00 08/30/23 03:00 08/30/23 03:00 08/30/23 03:00 08/30/23 03:00 Narrative: General: No acute distress Psych: Alert and oriented x 3, full affect HEENT: Normocephalic, atraumatic Abdomen: Soft, nondistended. Mild tenderness to palpation across the lower abdomen, anticipated in the postoperative setting. No rebound or guarding. OPERATING SYSTEMS PROGRAMMER - DS: Data Data Completed and Pending Labs on day of discharge: Labs from last 24 hours 08/30/23 08/29/23 08/29/23 06:21 21:02 14:27 WBC 10.94 RBC 3.89 L Hgb 11.6 L Hct 34.0 MCV 87 MCH 30 MCHC 34 RDW Coeff of Al 12.9 Plt Count 184 Neut % (Auto) 80.4 H Lymph % (Auto) 12.2 L [place] % (Auto) 7.0 Eos % (Auto) 0.1 Baso % (Auto) 0.0 Neut # (Auto) 8.80 H Lymph # (Auto) 1.30 [place] # (Auto) 0.80 Eos # (Auto) 0.01 Baso # (Auto) 0.00 Abs Immat Gran (auto) 0.03 Imm/Tot Granulo (auto) 0.3 Sodium 137 Potassium 4.5 Chloride 108 Carbon Dioxide 22 Anion Gap 7 BUN 7 Creatinine 0.4 L Estimated Creat Clear 194.27 Estimated GFR 137 Glucose 85 Calcium 8.8 Total Bilirubin 0.6 AST 35 ALT 20 Alkaline Phosphatase 45 Total Protein 7.2 Albumin 4.3 Urine Color Yellow Urine Appearance Clear Urine pH 7.5 Ur Specific [place] 1.015 Urine Protein Negative Urine Glucose (UA) Negative Urine Ketones Negative Urine Blood Negative Urine Nitrite Negative Urine Bilirubin Negative Urine Urobilinogen 0.2 Ur Leukocyte Esterase Negative Urine RBC 0-2 Urine WBC 0-2 Ur Squamous Epith Cells None Urine Bacteria None Blood Type Antibody Screen Crossmatch (AHG) 08/28/23 16:58 WBC RBC Hgb Hct MCV MCH MCHC RDW Coeff of Al Plt Count Neut % (Auto) Lymph % (Auto) [place] % (Auto) Eos % (Auto) Baso % (Auto) Neut # (Auto) Lymph # (Auto) [place] # (Auto) Eos # (Auto) Baso # (Auto) Abs Immat Gran (auto) Imm/Tot Granulo (auto) Sodium Potassium Chloride Carbon Dioxide Anion Gap BUN Creatinine Estimated Creat Clear Estimated GFR Glucose Calcium Total Bilirubin AST ALT Alkaline Phosphatase Total Protein Albumin Urine Color Urine Appearance Urine pH Ur Specific [place] Urine Protein Urine Glucose (UA) Urine Ketones Urine Blood Urine Nitrite Urine Bilirubin Urine Urobilinogen Ur Leukocyte Esterase Urine RBC Urine WBC Ur Squamous Epith Cells Urine Bacteria Blood Type A Negative Antibody Screen NEGATIVE Crossmatch (AHG) See Detail Preliminary micro results at discharge 08/29/23 21:00 Urine Culture - Preliminary Urine,Clean Catch Culture in Progress Procedures Procedures: Procedures Operation Date: 08/29/23 12:00 Actual Procedure Side Surgeon p Suction Dilatation & Curettage Not Applicable Elo Rendon MD Discharge Plan Discharge Disposition: Home, Self-Care Discharging Surgeon: Gladys Burns Follow-Up Appointment: [address] Rendon, plan weekly hCG pending return of pathology Prescriptions: Continued dextroamphetamine-amphetamine 20 mg capsule,extended release 24hr 1 cap PO BID Balanced B-100 Complex 100 mg tablet extended release PO multivitamin Tablet 1 tab PO QAM Activity Level: No Restrictions Activity Detail: Pelvic rest for 2 weeks. Discharge Diet: Regular Patient Instructions: Deep Sedation (DC), Dilation and Curettage (DC) Additional Instructions: Sexual restriction: Pelvic rest for 2 weeks Pain control: Over the counter Motrin 600 mg by mouth every six hours on a full stomach for pain as needed Over the counter Acetaminophen 1000 mg by mouth every six hours on a full stomach for pain as needed Please call with: - Increasing or severe abdominal pain - Fevers/chills - Inability to tolerate solid/liquids by mouth, recurrent nausea/vomiting - heavy vaginal bleeding or abnormal vaginal discharge - Signs or symptoms of a blood clot - calf pain, redness, swelling, chest pain or shortness of breath Forms: Work/School Release Follow-up: Provider,Not a Local [Primary Care Provider] - Discharge Orders: Discharge Order (Routine); Ordered 08/30/23 Ordered By: Gladys Burns
[2023-08-30 08:37] VITALS: BP 98/48; PULSE 60; RESP 16; TEMP 36.5; O2SAT 98
[2023-08-30] MEDS: IBUPROFEN 600 MG TABLET PO (10:56)
--- NOTE | 2023-08-30 11:05 | PC.NURSE ---
Patient A&O and pain is tolerable throughout the morning. Denies having any blood in pad. VSS and afebrile. Reports left sided lower abdominal pain at 3/10 this morning. Scheduled ibuprofen given at time of discharge per MD order. Rhogam IM injection given in right gluteus prior to discharge per Dr. Rendon's order. Patient is ambulatory to bathroom & up ad jose rafael. Denies any N/V after eating breakfast. Discharge education reviewed with both patient and her who both verbalized understanding. Their questions were answered appropriately and both were attentative to instructions. PIV's removed from left wrist and left forearm without complication. MICHEL Perera escorted patient and her to ER doors for discharge.
== END 2023-08-30 10:55 | disposition home or self-care (01) ==
LOC: ED 20:34 → MEDSURG 22:55 → SS 08-29 09:15 → MEDSURG 08-29 09:16
PROVIDERS: Obstetrics & Gynecology; Emergency Provider Family Medicine; Visit Provider Obstetrics & Gynecology
PROC: (CPT 59820; principal; 2023-08-29 11:50)
DX: O02.0 Blighted ovum and nonhydatidiform mole (principal); R10.2 Pelvic and perineal pain; R42 Dizziness and giddiness
CPT/HCPCS: 59820; 01965; 36415; 36430; 74176; 76817; 76856; 76857; 76998; 80053; 81001; 84443; 84702; 85025; 86850; 86900; 86901; 86922; 87086; 88271; 88274; 88305; 94761; 99140; 99284; A9270; G0378; J0330; J1100; J1885; J2250; J2405; J2590; J2704; J2710; J2791; J3010; J7050; J7120

== ENCOUNTER 2023-09-15 14:36 | Inpatient (IN) | payer BC, SELFPAY ==
[2023-09-15 14:44] VITALS: BP 138/71; PULSE 82; RESP 16; TEMP 36.7; O2SAT 100; BMI 25.8
--- NOTE | 2023-09-15 16:23 | ED_ITS ---
HPI - General Adult General Date Seen: 09/15/23 Chief complaint: Post Op Complication Stated complaint: surgery 2 weeks ago, infection Time Seen by Provider: 09/15/23 15:59 History of Present Illness HPI narrative: 08/28-ER for vaginal bleeding/spotting. LMP was 05/12. Had a positive test at home. Was 15 weeks 3 days. Ultrasound in the ER showed a 2.4 cm fluid collection within the endometrium without definitive or normal appearing decidual reaction. Tissue surrounding the fluid collection is heterogeneous with small cystic areas. Differential would include failed intrauterine gestation with large surrounding subchorionic hemorrhage or molar . She was seen by site operations manager, Dr. Dyson. She was admitted for pain control overnight. Diagnosed with molar . She underwent D and C on 08/29. Records indicate the surgery was uncomplicated. Pain was well controlled on postop day 1. 09/05, had a follow-up office visit with Dr. Rendon. postoperative course was complicated by persistent pelvic pain. She was treated with IV fentanyl and then oral narcotics. Her postoperative evaluation included CT of abdomen and pelvis without contrast, with findings notable for a kidney stone within the left kidney, and otherwise no acute findings. Her urinalysis was entirely negative. Surgical pathology showed hydropic chorionic villi without somatic tissue. A molar was not diagnosed. FISH was performed on the tissue to confirm absence of molar . These results are reviewed with the patient and a copy of the report is given to her today. She tried calling the clinic off hours last week due to persistent pelvic pain. She was put through to what sounds like the answering service, then directed to go to the urgent care. She was given oxycodone for pain. She has been taking Tylenol throughout the day and oxycodone as needed since then. Her last oxycodone dose was last night. She is still troubled with pain, in the pelvis and towards her left side. She feels nauseated and dizzy. She does not have heavy bleeding, but does have persistent pink vaginal discharge. She denies any fevers. Denies diarrhea or constipation Thought to have possible endometritis. Treated with Rocephin, doxycycline, clindamycin. Notes indicate that if she does not get better on antibiotics she should call to consider hospitalization for IV antibiotics. 09/11 clinic visit, Dr. Rendon 28-year-old woman who presents for a postoperative check. She was last seen 09/05/23. She is status post suction uterine curettage under ultrasound guidance on 08/29/2023. Indications for surgery were incomplete with molar suspected based on ultrasound findings. She had an uncomplicated procedure with an EBL of 20 mL. She was given IV doxycycline in preoperative prophylaxis. Her postoperative course was complicated by persistent pelvic pain. She was treated with IV fentanyl and then oral narcotics. Her postoperative evaluation included CT of abdomen and pelvis without contrast, with findings notable for a kidney stone within the left kidney, and otherwise no acute findings. Her urinalysis was entirely negative. Surgical pathology showed hydropic chorionic villi without somatic tissue. A molar was not diagnosed. FISH was performed on the tissue to confirm absence of molar . These results were previously reviewed with the patient. On 09/05/23, she had persistent pelvic pain, LLQ. She complained of nausea and dizziness. She has diffuse pain and cervical motion tenderness on bimanual exam. She was afebrile. CBC from that day was entirely normal. She has been treated presumptively for endometritis using: Ceftriaxone 500 mg IM today Doxycycline 100 mg b.i.d. for 14 days Clindamycin 450 mg every 6 hours for 14 days. This is in place of metronidazole, to which she has an allergy. She is feeling much better! She has a small amount of intermittent lateral pelvic pain, LLQ>RLQ, but this is much improved. She is no longer taking pain medication. She is taking probiotics. No constipation or diarrhea. The patient reports that she had been taking the prescribed antibiotic since last week and doing better. She was still having some mild pain but overall much better. Yesterday afternoon between about 4 in 7 she had recurrence of pain located across both segments of her lower pelvis and wrapping around to her low back (not to her flank but more to the back of her pelvis). Unclear why her pain got worse. No clear activity. The pain made her nauseous and dizzy. No fever but she did have some sweating. No urinary symptoms. No new vaginal bleeding no discharge. No purulent discharge. Bowel movements normal. No pain up into her flank. No upper abdominal pain. Today she had ongoing more severe pain so came back to the ER. Related Data Home Medications Medication Instructions Recorded Confirmed dextroamphetamine-amphetamine ER 1 cap PO BID 08/10/23 09/15/23 20 mg 24hr capsule,extend release multivitamin 1 tab PO QAM 08/10/23 09/15/23 vit B complex 100 combo no.2 100 tab PO 08/10/23 09/12/23 mg tablet,extended release (Balanced B-100 Complex) Previous Rx's Medication Instructions Recorded clindamycin HCl 150 mg capsule 150 mg PO Q6H 14 days #56 caps 09/05/23 clindamycin HCl 300 mg capsule 300 mg PO Q6H 14 days #56 caps 09/05/23 doxycycline hyclate 100 mg capsule 100 mg PO BID 14 days #28 caps 09/05/23 Allergies Allergy/AdvReac Type Severity Reaction Status Date / Time glucosamine Allergy Verified 09/15/23 14:55 hydrocodone [From Vicodin] Allergy Verified 09/15/23 14:55 Iodinated Contrast Media Allergy Verified 09/15/23 14:55 iodine Allergy Verified 09/15/23 14:55 levofloxacin Allergy Verified 09/15/23 14:55 metrizamide Allergy Verified 09/15/23 14:55 metronidazole Allergy Verified 09/15/23 14:55 morphine Allergy Verified 09/15/23 14:55 mushroom Allergy Verified 09/15/23 14:55 shellfish derived Allergy Verified 09/15/23 14:55 tree nut Allergy Verified 09/15/23 14:55 PFSH [facility] Medical History (Updated 09/15/23 @ 20:51 by Charbel Norman MD) Exercise-induced asthma ?J45.990 - Exercise induced bronchospasm (ICD-10) Anemia ?D64.9 - Anemia, unspecified (ICD-10) CSF leak from nose ?G96.01 - Cranial cerebrospinal fluid leak, spontaneous (ICD-10) Meningitis (2017) ?G03.9 - Meningitis, unspecified (ICD-10) Surgical History (Updated 09/05/23 @ 12:13 by Elo Rendon MD) History of section ?Z98.891 - History of uterine scar from previous surgery (ICD-10) Social History What is your current living situation?: I presently have a place to live Problems where you live: no known problems Problems where you live details: n/a In the past 12 months, utilities in danger of being shut off: no In past 12 months, lack of transportation kept you from medical appts, meetings, work, or getting things needed for daily living: no In the past 12 mos, have been you worried that your food would run out before you had money to buy more?: never true In the past 12 mos, the food you bought just didn't last and you didn't have money to buy more?: never true Smoking Status: Never smoker Do you use any of these nicotine containing products: None Second hand tobacco smoke exposure: No How often do you have a drink containing alcohol: never How often do you have six or more drinks on one occasion: Never AUDIT-C Alcohol total score: 0 Non-prescribed substance use: denies use Caffeine: No How often does anyone, including family, friends and others, physically hurt you : never How often does anyone, including family, friends and others, insult or talk down to you: never How often does anyone, including family, friends and others, threaten you with harm: never How often does anyone, including family, friends and others, scream or curse at you: never Little interest or pleasure in doing things: not at all Feeling down, depressed, or hopeless: not at all service: No Exam Narrative: Exam Narrative: Constitutional: Appears well-developed and well-nourished. Alert. Uncomfortable, but Conversant. Non toxic. HENT: Head: Atraumatic. Nose: Nose normal. Mouth/Throat: Oral mucosa is clear and moist. no trismus. Pharynx normal. Tonsils symmetric. No tonsillar enlargement, erythema, or exudate. Eyes: Conjunctivae normal. EOM normal. Pupils equal, round, and reactive to light. No scleral icterus. Neck: Normal range of motion. Neck supple. No tracheal deviation present. Cardiovascular: Normal rate, regular rhythm. No gallop. No friction rub. No murmur heard. Symmetric radial artery pulses Pulmonary/Chest: Effort normal. No stridor. No respiratory distress. No wheezes. No rales. No rhonchi . No tenderness. Abdominal: Soft. Bowel sounds normal. No distension. No mass. Right lower quadrant, suprapubic, and left lower quadrant tenderness. She endorses pain wrapping around to the back of her pelvis but does not have any CVA tenderness. No rebound. No guarding. Musculoskeletal: RUE: Normal range of motion. No tenderness. No deformity LUE: Normal range of motion. No tenderness. No deformity RLE: Normal range of motion. No edema. No tenderness. No deformity LLE: Normal range of motion. No edema. No tenderness. No deformity Neurological: Alert and oriented to person, place, and time. Normal strength. CN II-VII intact. No sensory deficit. GCS eye subscore is 4. GCS verbal subscore is 5. GCS motor subscore is 6. Normal coordination Skin: Skin is warm and dry. No rash noted. No pallor. Normal capillary refill. Psychiatric: Normal mood. Normal affect. Const: Vital Signs, click to edit/add: Vital Signs - 24 hr 09/15/23 14:44 09/15/23 17:16 09/15/23 20:12 Temperature 98.0 F Pulse Rate [Pulse Oximeter] 82 73 82 Respiratory Rate 16 14 Blood Pressure [[facility] Upper Arm] 138/71 113/66 Pulse Oximetry 100 100 99 Oxygen Delivery Me thod Room Air Room Air Room Air Course Vital Signs Vital signs: Initial Vital Signs Temperature 98.0 F 09/15/23 14:44 Temperature Source Temporal Artery Scan 09/15/23 14:44 Pulse Rate 82 09/15/23 14:44 Respiratory Rate 16 09/15/23 14:44 Blood Pressure 138/71 09/15/23 14:44 Blood Pressure Mean 93 09/15/23 14:44 Blood Pressure Position Sitting 09/15/23 14:44 Pulse Oximetry 100 09/15/23 14:44 Oxygen Delivery Method Room Air 09/15/23 14:44 Vital Signs Temperature 98.0 F 09/15/23 14:44 Pulse Rate 82 09/15/23 14:44 Respiratory Rate 16 09/15/23 14:44 Blood Pressure 138/71 09/15/23 14:44 Pulse Oximetry 100 09/15/23 14:44 Oxygen Delivery Method Room Air 09/15/23 14:44 Temperature 98.0 F 09/15/23 14:44 Pulse Rate 82 09/15/23 20:12 Respiratory Rate 14 09/15/23 20:12 Blood Pressure 113/66 09/15/23 20:12 Pulse Oximetry 99 09/15/23 20:12 Oxygen Delivery Method Room Air 09/15/23 20:12 Medications Administered Medications: Discontinued Medications Generic Name Dose Route Start Last Admin Trade Name Michelle PRN Reason Stop Dose Admin Acetaminophen 1,000 mg 09/15/23 18:53 09/15/23 18:54 Acetaminophen 500 Mg Tablet PO 09/15/23 18:54 1,000 mg ONCE ONE Administration Fentanyl 50 mcg 09/15/23 16:23 09/15/23 16:52 Fentanyl 100 Mcg/2 Ml Inj IVP 09/15/23 16:24 50 mcg ONCE ONE Administration Sodium Chloride 1,000 mls @ 1,000 mls/hr 09/15/23 16:30 09/15/23 16:56 0.9 % Sodium Chloride 1000 Ml IV 09/15/23 17:29 1,000 mls/hr .Q1H SANCHEZ Administration Ondansetron HCl 4 mg 09/15/23 16:23 09/15/23 16:50 Ondansetron 2 Mg/Ml Inj IVP 09/15/23 16:24 4 mg ONCE ONE Administration Oxycodone HCl 5 mg 09/15/23 16:23 09/15/23 16:57 Oxycodone 5 Mg Tablet PO 09/15/23 16:24 5 mg ONCE ONE Administration Medical Decision Making MDM Narrative Medical decision making narrative: Pleasant 28-year-old female presenting to the ER today with her for evaluation of recurrent and worsening bilateral pelvic pain. She has had recent abnormal with D and C. She has developed this pelvic pain since her D and C procedure. She is already on outpatient antibiotics for presumed endometritis. She was getting better after starting the antibiotics but now is worse since yesterday afternoon. She has had a complex recent past history, as above. Concern here is for retained products cups conception or worsening and Ob tried this although she does not have any fever, leukocytosis or clear change in discharge. In consultation with Gynecology, Dr. Andrade, we did obtain pelvic ultrasound. Pelvic ultrasound essentially shows a normal uterus and ovaries. Non gynecologic causes of pelvic pain were considered. Urinalysis negative. Overall his abdominal exam is non peritoneal. She has already had 2 CT scans for her post D&C pelvic pain that showed no acute findings such as appendicitis, colitis, diverticulitis, free fluid, or abscesses. She did have a small nonobstructing left-sided intrarenal kidney stone which is likely not contributing to her bilateral pelvic pain today. Due to the risk of radiation we decided to hold off on a repeating a 3rd CT scan tonight. Laboratory workup is reassuring. She is hemodynamically stable. Despite that she is still uncomfortable with pelvic pain. In discussion with the on-call log handling equipment operator, cause of pain is unclear. Could potentially still be smoldering endometritis. Could be other etiology. No evidence for torsion, large cyst, obvious free for pelvic fluid. Discussed with the patient and her . They were told by her primary log handling equipment operator that if her pain fails to improve on oral antibiotics that they would admit her for IV antibiotics. They are expecting to be admitted today. At this point I think it is reasonable to admit her for antibiotics and pain control and monitoring. Discussed with JANET Valencia, and she will admit. Lab Data Labs: Lab Results 09/15/23 09/15/23 09/15/23 Range/Units 16:27 16:45 18:27 WBC (4.50-11.00) K/uL RBC (4.00-5.20) m/uL Hgb (12.0-16.0) gm/dL Hct (33.0-51.0) % MCV (80-100) fL MCH (26-34) pg MCHC (32-36) gm/dL RDW Coeff of Al (11.5-15.5) % Plt Count (140-440) K/uL Neut % (Auto) (42.0-72.0) % Lymph % (Auto) (20-44) % [place] % (Auto) (0.0-11.0) % Eos % (Auto) (0.0-7.0) % Baso % (Auto) (0.0-3.0) % Neut # (Auto) (1.7-7.0) K/uL Lymph # (Auto) (0.90-2.90) K/uL [place] # (Auto) (0.00-0.90) K/UL Eos # (Auto) (0.00-0.50) K/uL Baso # (Auto) (0.00-0.30) K/uL Abs Immat Gran (auto) (0.00-0.30) K/uL Imm/Tot Granulo (auto) % Sodium 141 (135-149) mmol/L Potassium 4.0 (3.6-5.1) mmol/L Chloride 106 (96-114) mmol/L Carbon Dioxide 22 (20-32) mmol/L Anion Gap 13 (7-15) mEq/L BUN 14 (5-24) mg/dL Creatinine 0.6 (0.5-1.5) mg/dL Estimated Creat Clear 129.51 Estimated GFR 125 ml/min Glucose 82 (60-115) mg/dL Calcium 9.5 (8.4-10.6) mg/dL Total Bilirubin 0.2 (0.1-1.5) mg/dL AST 41 H (12-35) U/L ALT 90 H (4-35) U/L Alkaline Phosphatase 56 (40-150) U/L C-Reactive Protein 0.5 (0.5-1.0) mg/dL Total Protein 7.7 (6.0-8.3) g/dL Albumin 4.9 (3.3-5.0) g/dL HCG, Quant 20.22 mIU/mL Urine Color Yellow (Yellow) Urine Appearance Clear (Clear) Urine pH 6.5 (5.0-8.5) Ur Specific [place] 1.015 (1.000-1.030) Urine Protein Negative (Negative) Urine Glucose (UA) Negative (Negative) Urine Ketones Negative (Negative) Urine Blood Negative (Negative) Urine Nitrite Negative (Negative) Urine Bilirubin Negative (Negative) Urine Urobilinogen 0.2 (0.2-1.0) Ur Leukocyte Esterase Negative (Negative) Urine RBC 0-2 (0-2) Urine WBC 0-2 (0-5) Ur Squamous Epith Cells None (None-Few) Urine Bacteria None (None) Lab Acknowledgement New Spec Needed 09/15/23 Range/Units 18:42 WBC 6.99 (4.50-11.00) K/uL RBC 3.98 L (4.00-5.20) m/uL Hgb 11.8 L (12.0-16.0) gm/dL Hct 35.6 (33.0-51.0) % MCV 89 (80-100) fL MCH 30 (26-34) pg MCHC 33 (32-36) gm/dL RDW Coeff of Al 13.0 (11.5-15.5) % Plt Count 239 (140-440) K/uL Neut % (Auto) 68.6 (42.0-72.0) % Lymph % (Auto) 22.3 (20-44) % [place] % (Auto) 7.6 (0.0-11.0) % Eos % (Auto) 1.1 (0.0-7.0) % Baso % (Auto) 0.3 (0.0-3.0) % Neut # (Auto) 4.79 (1.7-7.0) K/uL Lymph # (Auto) 1.56 (0.90-2.90) K/uL [place] # (Auto) 0.50 (0.00-0.90) K/UL Eos # (Auto) 0.08 (0.00-0.50) K/uL Baso # (Auto) 0.02 (0.00-0.30) K/uL Abs Immat Gran (auto) 0.01 (0.00-0.30) K/uL Imm/Tot Granulo (auto) 0.1 % Sodium (135-149) mmol/L Potassium (3.6-5.1) mmol/L Chloride (96-114) mmol/L Carbon Dioxide (20-32) mmol/L Anion Gap (7-15) mEq/L BUN (5-24) mg/dL Creatinine (0.5-1.5) mg/dL Estimated Creat Clear Estimated GFR ml/min Glucose (60-115) mg/dL Calcium (8.4-10.6) mg/dL Total Bilirubin (0.1-1.5) mg/dL AST (12-35) U/L ALT (4-35) U/L Alkaline Phosphatase (40-150) U/L C-Reactive Protein (0.5-1.0) mg/dL Total Protein (6.0-8.3) g/dL Albumin (3.3-5.0) g/dL HCG, Quant mIU/mL Urine Color (Yellow) Urine Appearance (Clear) Urine pH (5.0-8.5) Ur Specific [place] (1.000-1.030) Urine Protein (Negative) Urine Glucose (UA) (Negative) Urine Ketones (Negative) Urine Blood (Negative) Urine Nitrite (Negative) Urine Bilirubin (Negative) Urine Urobilinogen (0.2-1.0) Ur Leukocyte Esterase (Negative) Urine RBC (0-2) Urine WBC (0-5) Ur Squamous Epith Cells (None-Few) Urine Bacteria (None) Lab Acknowledgement Imaging Data US pelvic: Attestation: I have reviewed the pertinent imaging results. Radiologist's impression: IMPRESSION: Unremarkable uterus and endometrium for age. Tiny 2.0 centimeter collapsing right corpus luteal cyst versus hemorrhagic cyst. This could be followed up with repeat pelvic ultrasound in 6-8 weeks. Otherwise, unremarkable ovaries for age. Discharge Plan Discharge Clinical Impression: Pelvic pain Patient Disposition: Admitted As Observation
[2023-09-15] MEDS: ONDANSETRON 2 MG/ML inj 4 MG IVP ×2 (16:50→21:49)
[2023-09-15] MEDS: fentaNYL 100 MCG/2 ML inj 50 MCG IVP ×2 (16:52→21:48)
[2023-09-15] MEDS: 0.9 % SODIUM CHLORIDE 1000 ml 1,000 ML IV (16:56)
[2023-09-15] MEDS: OXYCODONE 5 MG TABLET PO (16:57)
--- OUTSIDE RECORDS SUMMARY | 2023-09-15 17:09 | XMS_ITS | Continuity of Care Document ---
Author Name Unknown Organization [facility] Address [address] [place] [address] Phone Care Team Providers Care Black Powder Glazing Operator Name Role Phone Diogenes Thomas Unavailable Unavailable Procedures Procedure Date Initial Hospital Care, Low Advance Directives Directive Yes / No Effective Date File Name No Information Encounters Encounter Description Practice Location Reason(s) For Visit Diagnoses Date Provider Providers Copied on Encounter Initial Hospital Care, [facility] [facility], [address], [place], [place], [id number], [place] tel:[phone] [facility] No Information Chris Shetty. [facility], [address], [place], [place], [id number], [place]. tel:[phone] Referring Provider: Reji Paredes, [email or web address] [address] [facility] [address], [place], [address]. tel:[phone] Family History Family Member Type Diagnosis Age At Onset No Information Payers Payer name Insurance type Covered republican ID Ian blakeelizabeth(s) [employer] [id number] Social History Type Description Quantity Date Captured [...]
[2023-09-15 17:16] VITALS: PULSE 73; O2SAT 100
[2023-09-15 17:19] LABS: Appearance Urine Clear (Clear); Bilirubin Urine Negative (Negative); Blood Urine Negative (Negative); Color Urine Yellow (Yellow); Glucose Urine Negative (Negative); Ketones Urine Negative (Negative); Leukocyte Esterase Urine Negative (Negative); Nitrite Urine Negative (Negative); Protein Urine Negative (Negative); Specific Gravity Urine 1.015 (1.000-1.030); Urobilinogen Urine 0.2 (0.2-1.0); pH Urine 6.5 (5.0-8.5)
[2023-09-15 17:22] LABS: RBC Urine 0-2 (0-2); WBC Urine 0-2 (0-5)
[2023-09-15 17:44] LABS: Albumin* 4.9 g/dL (3.3-5.0); Chloride* 106 mmol/L (96-114); Sodium* 141 mmol/L (135-149)
--- NOTE | 2023-09-15 17:46 | CRLHL7_ITS ---
For Patients: As a result of the Century Cures Act, medical imaging exams and procedure reports are released immediately into your electronic medical record. You may view this report before your referring provider. If you have questions, please contact your health care provider. INDICATION: Pelvic pain. TECHNIQUE: Ultrasound pelvis transabdominal and transvaginal for better assessment or to better visualize the endometrium. Real-time sonographic images with spectral and color Doppler imaging of the ovaries were obtained. COMPARISON: None. FINDINGS: Uterus: 8.4 x 4.0 x 4.3 cm. Normal echotexture of the myometrium. No masses. Endometrium: Transvaginal imaging was performed to better evaluate the endometrium. Endometrial thickness measures 10 mm. No sign of endometrial mass or fluid. Right ovary 3.4 x 2.1 x 3.6 centimeters. Left ovary 4.1 x 2.0 x 3.1 centimeter. Tiny 2.0 centimeter collapsing right corpus luteal cyst versus hemorrhagic cyst. Additional bilateral follicles. No ovarian or adnexal masses. Normal arterial and venous blood flow is demonstrated in both ovaries. Cul-de-sac: Small volume free fluid. IMPRESSION: Unremarkable uterus and endometrium for age. Tiny 2.0 centimeter collapsing right corpus luteal cyst versus hemorrhagic cyst. This could be followed up with repeat pelvic ultrasound in 6-8 weeks. Otherwise, unremarkable ovaries for age. Dictated by James Carlson MD @ 09/15/2023 8:20:14 PM (Electronically Signed)
[2023-09-15 17:47] LABS: Creatinine* 0.6 mg/dL (0.5-1.5); Est. Creatinine Clearance* 129.51; Estimated Glomerular Filt Rate 125 ml/min
[2023-09-15 17:48] LABS: Alanine Aminotransferase* 90 U/L (4-35); Alkaline Phosphatase* 56 U/L (40-150); Anion Gap 13 mEq/L (7-15); Aspartate Amino Transferase* 41 U/L (12-35); Bilirubin Total* 0.2 mg/dL (0.1-1.5); Blood Urea Nitrogen* 14 mg/dL (5-24); Calcium* 9.5 mg/dL (8.4-10.6); Carbon Dioxide* 22 mmol/L (20-32); Glucose* 82 mg/dL (60-115); Total Protein* 7.7 g/dL (6.0-8.3)
[2023-09-15 17:51] LABS: C Reactive Protein* 0.5 mg/dL (0.5-1.0)
[2023-09-15 18:05] LABS: HCG Quantitative* 20.22 mIU/mL
[2023-09-15 18:44] LABS: Lab Add On Test New Spec Needed
[2023-09-15 18:48] LABS: Basophils Absolute Auto 0.02 K/uL (0.00-0.30); Basophils Percent Auto 0.3 % (0.0-3.0); Eosinophils Absolute Auto 0.08 K/uL (0.00-0.50); Eosinophils Percent Auto 1.1 % (0.0-7.0); Hematocrit 35.6 % (33.0-51.0); Hemoglobin* 11.8 gm/dL (12.0-16.0); Immature Granulocytes Abs Auto 0.01 K/uL (0.00-0.30); Immature Granulocytes Pct Auto 0.1 %; Lymphocytes Absolute Auto 1.56 K/uL (0.90-2.90); Lymphocytes Percent Auto 22.3 % (20-44); Mean Corpuscular HGB Conc 33 gm/dL (32-36); Mean Corpuscular Hemoglobin 30 pg (26-34); Mean Corpuscular Volume 89 fL (80-100); Monocytes Percent Auto 7.6 % (0.0-11.0); Neutrophils Absolute Auto 4.79 K/uL (1.7-7.0); Neutrophils Percent Auto 68.6 % (42.0-72.0); Platelet Count* 239 K/uL (140-440); Red Blood Count 3.98 m/uL (4.00-5.20); White Blood Count* 6.99 K/uL (4.50-11.00)
[2023-09-15 18:51] LABS: Slide Review Reflex No
[2023-09-15] MEDS: ACETAMINOPHEN 500 MG TABLET 1000 MG PO (18:54)
--- NOTE | 2023-09-15 19:05 | PC.NURSE ---
pt to [place]
[2023-09-15 20:12] VITALS: BP 113/66; PULSE 82; RESP 14; O2SAT 99
[2023-09-15 20:57] VITALS: BP 123/81; RESP 16; TEMP 36.4; O2SAT 100
--- NOTE | 2023-09-15 21:04 | PM.GYNHPNOR ---
CONTROL ROOM TECHNICIAN - H&P:HPI Medical History of Present Illness Date Seen: 09/15/23 Reason for admission: pelvic inflammatory disease Narrative: Queenie Robledo is a 28 year old female who is seen today at ED for worsening pelvic pain. I have been consulted over the phone and recommendation was given for admission for IV antibiotics under gynecology service. Patient had a suction D&C on 08/29/23 due to non viable intrauterine , concern for molar . Surgery was uncomplicated but post op period complicated by persistent and severe pelvic pain. Patient was kept overnight under observation and a abdominal/pelvic CT scan was performed at that time w/o evidence of acute intra abdominal pathology. Normal lab work. Pain improved overnight and she was discharged home. Patient then had a clinic visit on 09/05/23 with concerns of persistent pain and needing to utilize acetaminophen and oxycodone. Pelvic exam was completed at that visit and patient was diagnosed with endometritis, one dose of IM Ceftriaxone given and patient was sent home with order for PO doxycycline, clindamycin since she is allergic to metronidazole. Patient had been doing better and was seen again in clinic on 09/12/23. Patient stated that she was feeling better and was sent home to complete her antibiotic therapy. Patient today states that pain had been worsening for the past day or tw and as previously discussed with Dr. Rendon, she was to be re evaluated. Today labs show normal WBC, transaminitis, normal pelvic US. Meds Home Medications and Allergies Home Medications Medication Instructions Recorded Confirmed Type dextroamphetamine-amphetamine ER 1 cap PO BID 08/10/23 09/15/23 History 20 mg 24hr capsule,extend release multivitamin 1 tab PO QAM 08/10/23 09/15/23 History vit B complex 100 combo no.2 100 tab PO 08/10/23 09/12/23 History mg tablet,extended release (Balanced B-100 Complex) Allergies Allergy/AdvReac Type Severity Reaction Status Date / Time glucosamine Allergy Verified 09/15/23 14:55 hydrocodone [From Vicodin] Allergy Verified 09/15/23 14:55 Iodinated Contrast Media Allergy Verified 09/15/23 14:55 iodine Allergy Verified 09/15/23 14:55 levofloxacin Allergy Verified 09/15/23 14:55 metrizamide Allergy Verified 09/15/23 14:55 metronidazole Allergy Verified 11/24/23 14:55 morphine Allergy Verified 09/15/23 14:55 mushroom Allergy Verified 09/15/23 14:55 shellfish derived Allergy Verified 09/15/23 14:55 tree nut Allergy Verified 09/15/23 14:55 [facility] Active Problems (Updated 09/15/23 @ 20:51 by Charbel Norman MD) Pelvic pain (Acute) ?R10.2 - Pelvic and perineal pain (ICD-10) S/P dilation and curettage (Acute) ?Z98.890 - Other specified postprocedural states (ICD-10) Endometritis (Acute) ?N71.9 - Inflammatory disease of uterus, unspecified (ICD-10) Missed (Acute) ?O02.1 - Missed (ICD-10) Pelvic pain (Acute) ?R10.2 - Pelvic and perineal pain (ICD-10) Molar (Acute) ?O02.0 - Blighted ovum and nonhydatidiform mole (ICD-10) Vomiting or nausea of (Acute) ?O21.9 - Vomiting of , unspecified (ICD-10) Medical History (Updated 09/15/23 @ 20:51 by Charbel Norman MD) Exercise-induced asthma ?J45.990 - Exercise induced bronchospasm (ICD-10) Anemia ?D64.9 - Anemia, unspecified (ICD-10) CSF leak from nose ?G96.01 - Cranial cerebrospinal fluid leak, spontaneous (ICD-10) Meningitis (2017) ?G03.9 - Meningitis, unspecified (ICD-10) Surgical History (Updated 09/05/23 @ 12:13 by Elo Rendon MD) History of section ?Z98.891 - History of uterine scar from previous surgery (ICD-10) Social History What is your current living situation?: I presently have a place to live Problems where you live: no known problems Problems where you live details: n/a In the past 12 months, utilities in danger of being shut off: no In past 12 months, lack of transportation kept you from medical appts, meetings, work, or getting things needed for daily living: no In the past 12 mos, have been you worried that your food would run out before you had money to buy more?: never true In the past 12 mos, the food you bought just didn't last and you didn't have money to buy more?: never true Smoking Status: Never smoker Do you use any of these nicotine containing products: None Second hand tobacco smoke exposure: No How often do you have a drink containing alcohol: never How often do you have six or more drinks on one occasion: Never AUDIT-C Alcohol total score: 0 Non-prescribed substance use: denies use Caffeine: No How often does anyone, including family, friends and others, physically hurt you: never How often does anyone, including family, friends and others, insult or talk down to you: never How often does anyone, including family, friends and others, threaten you with harm: never How often does anyone, including family, friends and others, scream or curse at you: never Little interest or pleasure in doing things: not at all Feeling down, depressed, or hopeless: not at all service: No Reproductive Health History : 2 Para: 1 CONTROL ROOM TECHNICIAN - Exam Physical Exam: Vital signs: Temp Pulse Resp BP Pulse Ox O2 Del Method 98.0 F 82 14 113/66 99 Room Air 09/15/23 14:44 09/15/23 20:12 09/15/23 20:12 09/15/23 20:12 09/15/23 20:12 09/15/23 20:12 CONTROL ROOM TECHNICIAN - Results Labs Labs: Short CBC 09/15/23 Range/Units 18:42 WBC 6.99 (4.50-11.00) K/uL Hgb 11.8 L (12.0-16.0) gm/dL Hct 35.6 (33.0-51.0) % Plt Count 239 (140-440) K/uL BMP 09/15/23 16:45 Sodium 141 Potassium 4.0 Chloride 106 Carbon Dioxide 22 BUN 14 Creatinine 0.6 Glucose 82 Calcium 9.5 Liver Function 09/15/23 Range/Units 16:45 Total Bilirubin 0.2 (0.1-1.5) mg/dL AST 41 H (12-35) U/L ALT 90 H (4-35) U/L Alkaline Phosphatase 56 (40-150) U/L Albumin 4.9 (3.3-5.0) g/dL Urine 09/15/23 Range/Units 16:27 Urine Color Yellow (Yellow) Urine Appearance Clear (Clear) Urine pH 6.5 (5.0-8.5) Ur Specific [place] 1.015 (1.000-1.030) Urine Protein Negative (Negative) Urine Glucose (UA) Negative (Negative) Assessment and Plan Assessment and plan (1) Endometritis: Status: Acute (2) S/P dilation and curettage: Status: Acute Plan 1. Admit to inpatient for IV antibiotics: Cefoxitin 2g IV q 6 hours and Doxycycline 100mg IV q 12 hours. 2. Pain management: Will try to focus on anti inflammatory medication and add opioids as needed, orally. 3. Case discussed with Chemist Instrumentation call center consultant provider tomorrow who will take over her care, to consider performance of endometrial biopsy to confirm-eventually endometritis diagnosis, if worsening symptoms considering additional imaging with CT scan.
[2023-09-15 21:35] VITALS: BP 112/67; PULSE 76; RESP 18; O2SAT 100
[2023-09-15] MEDS: LACTATED RINGERS 1000 ML 1,000 ML 125 ML IV (21:49)
[2023-09-15] MEDS: DOXYCYCLINE HYCLATE 100 MG in 0.9 % SODIUM CHLORIDE Mini-bag 100 ML IVPB (23:52)
[2023-09-16] VITALS (7 sets, daily range): BP systolic 104–117; BP diastolic 49–69; PULSE 61–76; RESP 16; TEMP 36.8–37.3; O2SAT 97–100; BMI 25.9
[2023-09-16] MEDS: OXYCODONE 5 MG TABLET PO ×2 (01:58→12:02)
[2023-09-16] MEDS: cefOXitin 2 GM in 0.9 % SODIUM CHLORIDE Mini-bag 100 ML IVPB ×4 (02:55→21:58)
[2023-09-16] MEDS: KETOROLAC 30 MG/ML inj IVP ×4 (02:55→21:58)
--- NOTE | 2023-09-16 06:54 | PC.NURSE ---
End of Shift: Pt arrived to unit via ED with c/o uncontrolled abdominal and back pain post op. Lives at home with and 8 year old son. Pain well-controlled after medication in ED rating on floor between 0-2/10. VSS. at bedside throughout night. Pt reported pain at IV site in right hand, IV flushed, no infiltration noted, pt continued to report pain. New IV placed in left wrist, pt continued to report discomfort with medication, doxy 100. Pt reports taking doxy at home with no adverse reactions. No redness, warmth, itching or other signs of allergic reaction noted. Pt able to tolerate infusion with NS piggy backed. Pt slept well throughout night.
[2023-09-16 08:03] LABS: Basophils Absolute Auto 0.01 K/uL (0.00-0.30); Basophils Percent Auto 0.2 % (0.0-3.0); Eosinophils Percent Auto 2.1 % (0.0-7.0); Hematocrit 33.1 % (33.0-51.0); Hemoglobin* 10.9 gm/dL (12.0-16.0); Immature Granulocytes Abs Auto 0.01 K/uL (0.00-0.30); Immature Granulocytes Pct Auto 0.2 %; Lymphocytes Absolute Auto 1.68 K/uL (0.90-2.90); Lymphocytes Percent Auto 35.1 % (20-44); Mean Corpuscular HGB Conc 33 gm/dL (32-36); Mean Corpuscular Hemoglobin 30 pg (26-34); Mean Corpuscular Volume 90 fL (80-100); Monocytes Percent Auto 9.2 % (0.0-11.0); Neutrophils Absolute Auto 2.54 K/uL (1.7-7.0); Neutrophils Percent Auto 53.2 % (42.0-72.0); Platelet Count* 202 K/uL (140-440); RDW Coefficient of Variation % 13.1 % (11.5-15.5); White Blood Count* 4.78 K/uL (4.50-11.00)
[2023-09-16 08:07] LABS: Slide Review Reflex No
--- NOTE | 2023-09-16 08:19 | PM.GYNPNNOR ---
Progress Note: A&P Assessment and plan (1) Endometritis: Status: Acute (2) Pelvic pain: Status: Acute (3) S/P dilation and curettage: Status: Acute Plan Ms. Robledo is a 28yo s/p suction D&C on 08/29 for early loss, post-op course complicated by acute on chronic pelvic pain and suspected endometritis. She was initiated on IM ceftriaxone x1, doxycyline and clindamycin for 14 days on 09/[address] Rendon. She returned to care yesterday given acute worsening of pain since 09/14 with associated chills and vomiting. Presumptive diagnosis on admission was endometritis that failed to respond to oral antibiotics - but notably she was afebrile, hemodynamically stable with no leukocytosis and a normal pelvic US aside from evidence of recent ovulation. She was initiated on IV cefoxitin and doxycyline on admission, now notes her pain is much improved and vomiting/chills have resolved. On my exam today, her abdomen is notable for tenderness across the low abdomen with no evidence of peritoneal signs. Bimanual exam was notable for cervical and uterine tenderness. Endometrial biopsy performed for culture. There was mild transaminitis on admission, improved on recheck this morning with no RUQ pain. I explained that our working diagnosis is endometritis as the etiology behind her pain, though admittedly her course is unclear. It would be unusual for her to have clinical improvement for 10 days of PO antibiotics for endometritis, with an acute worsening at the end of her course. In addition, she does not present with fevers or leukocytosis to suggest infection. Her physical exam is notable for cervical and uterine tenderness and opaque white/yellow discharge without malodor, potentially consistent with pelvic infection. She has demonstrated clinical improvement since initiation of IV antibiotic therapy. Altogether, I am suspicious for endometritis as a potential etiology for her pain where I would advocate to continue IV antibiotics for 24 hours then revise to PO. Endometrial biopsy for culture is pending, may ultimately help us tailor her PO antibiotic course. If culture is negative, I would complete her previous 14 day course of antibiotics vs consider extending pending her clinical improvement. Alternatively, it is possible that she has mild peritoneal irritation given her recent pelvic infection. US is consistent with likely recent ovulation, which coincides with potential window for return of ovulation after her loss. It is possible that ovulation/cyst rupture has incited pain out of proportion to typical given her recent pelvic infection. I explained that this would be a diagnosis of exclusion, but may explain her acute onset of pain/vomiting. Plan to continue manage pain with NSAIDs and tylenol as first line, PO oxycodone only for severe/breakthrough pain. Anticipate another night in the hospital to complete 24 hours of IV antibiotics, then transition to PO tomorrow morning for likely dismissal. Repeat CBC tomorrow AM. If she notes worsening pain while inpatient or following dismissal, I would recommend comprehensive re-evaluation with CT A/P. All questions answered. PHYSICAL GEOGRAPHER- PN:Subj Non-OR Subjective Time Seen by Provider: 08:10 Date Seen: 09/16/23 Interval history: Ms. Robledo is a 28yo s/p suction D&C on 08/29/23 for early loss. Her immediate post-op course was complicated by pain requiring overnight admission, later endometritis with PO antibiotic therapy. She returned to the ED yesterday in the setting of new/worsening pelvic pain. Queenie notes her pain began acutely on 09/14 around 4pm, no inciting factors. Pain is described as constant, sharp and localized to the bilateral lower abdomen/pelvis (left greater than right) and radiating around the left low back. She notes associated chills since 09/14 and vomiting since 09/12, just following her last outpatient visit with Dr. Rendon. She had been utilizing ibuprofen and Tylenol for pain at home, or present to the ED when this was no longer sufficient to control her pain. Her evaluation was essentially negative, given no leukocytosis, no peritoneal signs on abdominal exam and a normal pelvic ultrasound. There was evidence for right collapsing corpus luteum cyst, likely representing recent ovulation. Since admission, Queenie notes that her pain is significantly improved. She has been utilizing Toradol, Tylenol and oxycodone p.r.n. (last at 2:00 a.m.) for pain. She denies fevers/chills, nausea/vomiting this morning. She notes known no abnormal discharge, states this has been thin and white through time. No vaginal bleeding - she has not resumed menses since her loss. No bowel or bladder concerns. No sick contacts. PHYSICAL GEOGRAPHER-PN: Obj Exam Physical Exam: Vital signs: Temp Pulse Resp BP Pulse Ox O2 Del Method 98.6 F 76 16 117/61 100 Room Air 09/16/23 02:34 09/16/23 02:34 09/16/23 02:34 09/16/23 02:34 09/16/23 02:34 09/16/23 02:34 Narrative: General: No acute distress Psych: Alert and oriented x 3, full affect HEENT: Normocephalic, atraumatic Abdomen: Soft, nondistended. Tenderness to palpation throughout the low abdomen, greatest at the midline and left lower quadrant. No rebound or guarding. Carnett's sign equivocal. Pelvic exam: External genitalia within normal limits. Speculum exam form, vagina is pink and well rugated. Fairly significant white/slightly yellow, thin, opaque vaginal discharge noted in the proximal vagina. Discharge is non malodorous. This was evacuated with 3 Scopettes to visualize cervix. Cervix itself is pink and without erythema, inflammation or lesion. Cervix was swabbed x3 with Betadine. Endometrial biopsy performed with 1 pass, uterus sounds to 8 cm, specimen sent for culture. Bimanual exam performed with mild discomfort throughout exam. There is specifically cervical motion and uterine tenderness, adnexal survey without mass or tenderness. Urinary Catheter Management: urethra: Cath placed during this visit: no PHYSICAL GEOGRAPHER - PN: Obj Data Labs Labs: Laboratory Results - last 24 hr 09/15/23 09/15/23 09/15/23 16:27 16:45 18:27 WBC RBC Hgb Hct MCV MCH MCHC RDW Coeff of Al Plt Count Neut % (Auto) Lymph % (Auto) [place] % (Auto) Eos % (Auto) Baso % (Auto) Neut # (Auto) Lymph # (Auto) [place] # (Auto) Eos # (Auto) Baso # (Auto) Abs Immat Gran (auto) Imm/Tot Granulo (auto) Sodium 141 Potassium 4.0 Chloride 106 Carbon Dioxide 22 Anion Gap 13 BUN 14 Creatinine 0.6 Estimated Creat Clear 129.51 Estimated GFR 125 Glucose 82 Calcium 9.5 Total Bilirubin 0.2 AST 41 H ALT 90 H Alkaline Phosphatase 56 C-Reactive Protein 0.5 Total Protein 7.7 Albumin 4.9 HCG, Quant 20.22 Urine Color Yellow Urine Appearance Clear Urine pH 6.5 Ur Specific [place] 1.015 Urine Protein Negative Urine Glucose (UA) Negative Urine Ketones Negative Urine Blood Negative Urine Nitrite Negative Urine Bilirubin Negative Urine Urobilinogen 0.2 Ur Leukocyte Esterase Negative Urine RBC 0-2 Urine WBC 0-2 Ur Squamous Epith Cells None Urine Bacteria None Lab Acknowledgement New Spec Needed 09/15/23 09/16/23 18:42 07:25 WBC 6.99 4.78 RBC 3.98 L 3.70 L Hgb 11.8 L 10.9 L Hct 35.6 33.1 MCV 89 90 MCH 30 30 MCHC 33 33 RDW Coeff of Al 13.0 13.1 Plt Count 239 202 Neut % (Auto) 68.6 53.2 Lymph % (Auto) 22.3 35.1 [place]les % (Auto) 7.6 9.2 Eos % (Auto) 1.1 2.1 Baso % (Auto) 0.3 0.2 Neut # (Auto) 4.79 2.54 Lymph # (Auto) 1.56 1.68 [place]les # (Auto) 0.50 0.40 Eos # (Auto) 0.08 0.10 Baso # (Auto) 0.02 0.01 Abs Immat Gran (auto) 0.01 0.01 Imm/Tot Granulo (auto) 0.1 0.2 Sodium Potassium Chloride Carbon Dioxide Anion Gap BUN Creatinine Estimated Creat Clear Estimated GFR Glucose Calcium Total Bilirubin AST ALT Alkaline Phosphatase C-Reactive Protein Total Protein Albumin HCG, Quant Urine Color Urine Appearance Urine pH Ur Specific [place] Urine Protein Urine Glucose (UA) Urine Ketones Urine Blood Urine Nitrite Urine Bilirubin Urine Urobilinogen Ur Leukocyte Esterase Urine RBC Urine WBC Ur Squamous Epith Cells Urine Bacteria Lab Acknowledgement
[2023-09-16 08:25] LABS: Alanine Aminotransferase* 68 U/L (4-35); Aspartate Amino Transferase* 31 U/L (12-35)
[2023-09-16] MEDS: ACETAMINOPHEN 325 MG TABLET 650 MG PO ×2 (11:11→17:18)
[2023-09-16] MEDS: LACTATED RINGERS 1000 ML 1,000 ML 125 ML IV (12:07)
[2023-09-16] MEDS: PROMETHAZINE 25 MG/ML INJ 12.5 MG IV (13:01)
[2023-09-16] MEDS: diphenhydrAMINE 50 MG/ML inj 12.5 MG IVP (13:33)
[2023-09-16] MEDS: DOXYCYCLINE HYCLATE 100 MG in 0.9 % SODIUM CHLORIDE Mini-bag 100 ML IVPB (13:53)
--- NOTE | 2023-09-16 19:14 | PC.NURSE ---
End of shift-- Very pleasant and cooperative, alert and oriented patient. VSS and pt is afebrile. SPO2 maintained >94% on RA. Patient c/o pain in her lower abdomen and radiating into her back. Pain appears to increase post urination. Pt states that pain in abdomen is sharp, but pain in her back she describes as pressure. She c/o pain as high as 7 out of 10 this afternoon and was given Oxycodone once. Shortly thereafter, patient was given Phernergan per MD order. Pt stated that she felt like she was hit by a truck, and c/o dizziness post Phenergan administration and was given PRN Benadryl with stated relief. Following benadryl, pt napped and then ate 100% of a regular lunch. She was up to the bathroom independently and tolerated it well aside from the increase of pain. LS CTA. , mother and grandparents were at bedside today and appear loving and supportive. Report to BE Henriquez.
[2023-09-17] MEDS: DOXYCYCLINE HYCLATE 100 MG in 0.9 % SODIUM CHLORIDE Mini-bag 100 ML 200 MG IVPB (02:21)
[2023-09-17 03:00] VITALS: BP 96/47; PULSE 62; RESP 16; TEMP 36.6; O2SAT 97
[2023-09-17] MEDS: cefOXitin 2 GM in 0.9 % SODIUM CHLORIDE Mini-bag 100 ML IVPB (03:19)
[2023-09-17] MEDS: KETOROLAC 30 MG/ML inj IVP (03:19)
[2023-09-17] MEDS: LACTATED RINGERS 1000 ML 1,000 ML 125 ML IV (05:44)
--- NOTE | 2023-09-17 05:57 | PC.NURSE ---
End of Shift: Pt AO, pleasant and cooperative throughout shift. Reported pain between 2-4/10. Well-controlled with scheduled Toradol. Pt reports increase in pain in abdomen with urination. Left hand IV fell out after pt took a shower, right hand IV no longer patent. Both IV's discontinued, new IV placed in left wrist. Flushing well, tolerating infusions. VSS. remained at bedside throughout shift. Tolerating regular diet well. Independent in room, continent with bladder, no BM throughout shift.
[2023-09-17 06:59] LABS: Basophils Absolute Auto 0.02 K/uL (0.00-0.30); Basophils Percent Auto 0.4 % (0.0-3.0); Eosinophils Absolute Auto 0.16 K/uL (0.00-0.50); Hematocrit 36.6 % (33.0-51.0); Hemoglobin* 12.2 gm/dL (12.0-16.0); Immature Granulocytes Abs Auto 0.01 K/uL (0.00-0.30); Immature Granulocytes Pct Auto 0.2 %; Lymphocytes Absolute Auto 1.49 K/uL (0.90-2.90); Mean Corpuscular HGB Conc 33 gm/dL (32-36); Mean Corpuscular Hemoglobin 30 pg (26-34); Mean Corpuscular Volume 89 fL (80-100); Monocytes Percent Auto 8.8 % (0.0-11.0); Neutrophils Absolute Auto 3.17 K/uL (1.7-7.0); Neutrophils Percent Auto 59.6 % (42.0-72.0); Platelet Count* 228 K/uL (140-440); White Blood Count* 5.32 K/uL (4.50-11.00)
[2023-09-17 07:15] LABS: Slide Review Reflex No
[2023-09-17 07:33] LABS: Alanine Aminotransferase* 68 U/L (4-35); Aspartate Amino Transferase* 38 U/L (12-35)
--- NOTE | 2023-09-17 09:51 | PM.GYNDS1 ---
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 Her surgery was on 08/29/2023 early loss, postoperative course has been complicated by recurrent pelvic pain and empiric treatment of endometritis in outpatient. Please see admitting H and P and my note from 09/16/2023 for further details. This morning, she notes her pain is variable. Specifically, she notes worsening mid low abdominal and left lower quadrant pain with urination. Outside of this, her pain has been primarily well controlled on ibuprofen and Tylenol. She did take 1 dose of oxycodone 5 mg yesterday. Compared to prior to admission, her pain is much improved. Compared to yesterday it is stable aside from the worsening pain she experienced with urination. She is tolerating p.o. intake without nausea/vomiting. Ambulates without difficulty. Denies fevers/chills, but did have episodes of sweating overnight. She has remained afebrile and hemodynamically stable throughout hospitalization. We reviewed her vital signs and labs in detail this morning. I explained that her Gram stain returned with coccobacilli, possibly representing a pathologic organism or may be benign Gardnerella. Still, given this finding and her uterine tenderness yesterday we have mutually agreed to continue antibiotic therapy for presumed endometritis. Given that she has remained afebrile, hemodynamically stable and with no leukocytosis and improving pain on more than 24 hours of IV antibiotics, we mutually agreed to revised to a p.o. regimen. Plan would be dismissal to home, with ibuprofen/Tylenol as her primary pain regimen. We discussed the role of endometrial culture, which is pending and may take several days to result, but will hopefully allow us to provide targeted antibiotic coverage. We discussed return precautions, where I would strongly encourage a comprehensive evaluation for potential etiologies of pain if it were to worsen (likely CT A/P) given this is outside of the typical course following a D&C. Queenie and her expressed understanding, college they were in agreement with this plan and comfortable. Shortly after rounding, bedside RN alerted me that Queenie and her had concerns. Her IV had recently fallen out and she expressed anxiety/concern with proceeding with dismissal. I returned to the bedside to discuss their concerns and plan in general. Queenie and her note that they were hoping they would have something definitive before leaving the hospital as they are concerned with the potential for recurrent pain and readmission. Certainly this is understandable, but I did explain that she is receiving outpatient level of care at this time in the hospital. I reassured her that her VS are within normal limits, she's had no fevers, no leukocytosis, and she endorses significant improvement of pain on a PO regimen. I do not necessarily expect her to be pain free, but am very reassured by her clinical improvement. We again discussed potential concurrent pain exacerbation in the setting of recent ovulation and pelvic inflammation with recent inflammation. I explained the limitations of endometrial culture, where it will take time for results to be available or could represent contamination from vagina (despite betadine prep, her cervix is not sterile) but we are hopeful this result can target therapy. I did call the lab prior to our conversation, where they note gram positive coccobacilli on gram stain and they are hopeful to reassess her culture soon. Explained that we will continue broad spectrum antibiotics until culture result is available to ensure continued clinical improvement. With typical endometritis, I explained that we would stop antibiotics after 24 hours with improvement vs PID (otuside of the context of ) we continue for 14 days. My recommendation is to meet in the middle - with a 7 day course as she has previously completed 10 days of PO antibiotics prior to admission, with a regimen of augmentin and doxycyline after discussion with inpatient Pharmacist. 7 days of Augmentin is consistent with an oral regimen for endometritis per up to date as well. For now, we plan to move forward with likely dismissal. However, I will call the lab again in the next 1-2 hours to see if her culture results are available to redirect therapy. Reassured Queenie and her to the best of my abilities. Explained her clinical course is challenging but I do feel comfortable proceeding with planned dismissal given hemodynamic stability, afebrile status, normal WBC and improved pain. Addendum at 1200: Lab returned my call with updates regarding Queenie's culture. Of note, they state the previous gram stain is no longer consistent with today's findings, feel today's findings are likely more human resources hr representative. They note growth of gram + rods (likely physiologic lactobacilli) and gram + cocci in chains on repeat gram stain from culture media growth. They are most suspicious for streptococcus as the likely pathogen behind her endometritis. They note further studies/cultures are required for definitive identification, but this information was relayed to Queenie and she is very reassured. I explained that Augmentin has excellent coverage of streptococcus, where again we would revise antibiotics as needed pending final culture results/sensitivities. She expressed understanding and is comfortable proceeding with dismissal. Return precautions reinforced. Rx for Augmentin 875/125mg BID x 7 days sent. PRN zofran (15 tablets) and oxycodone (5 tablets) sent. Recommend follow up visit in clinic within 1 week. 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 Moves without difficulty. Psych: Alert and oriented x 3, full affect HEENT: Normocephalic, atraumatic Abdomen: Soft, nondistended. Tenderness to palpation throughout the low abdomen, greatest at the left lower quadrant. No rebound or guarding. Unchanged from previous exam. 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: Data Data Completed and Pending Labs on day of discharge: Labs from last 24 hours 09/17/23 06:45 WBC 5.32 RBC 4.10 Hgb 12.2 Hct 36.6 MCV 89 MCH 30 MCHC 33 RDW Coeff of Al 13.0 Plt Count 228 Neut % (Auto) 59.6 Lymph % (Auto) 28.0 [place] % (Auto) 8.8 Eos % (Auto) 3.0 Baso % (Auto) 0.4 Neut # (Auto) 3.17 Lymph # (Auto) 1.49 [place] # (Auto) 0.50 Eos # (Auto) 0.16 Baso # (Auto) 0.02 Abs Immat Gran (auto) 0.01 Imm/Tot Granulo (auto) 0.2 AST 38 H ALT 68 H Preliminary micro results at discharge 09/16/23 09:02 Aerobic Culture - Preliminary Uterus Culture in Progress Anaerobic Culture - Preliminary Culture in Progress Discharge Plan Discharge Disposition: Home, Self-Care Date of Admission: 09/16/23 08:33 Attending Provider on Discharge: Gladys Burns Primary Care Provider: Provider,Not a Local Condition: Stable Anticipated Discharge Date/Time: 09/17/23 10:40 Discharge Medications: New ondansetron 4 mg Tablet,Disintegrating 4 mg PO Q6H PRNQty: 15 0RF oxycodone 5 mg Tablet 5 mg PO Q4H PRN (Reason: Moderate Pain) Qty: 5 0RF amoxicillin-pot clavulanate 875-125 mg Tablet 1 tab PO BIDWM 7 Days Qty: 7 0RF Continued dextroamphetamine-amphetamine 20 mg capsule,extended release 24hr 1 cap PO BID Balanced B-100 Complex 100 mg tablet extended release PO Hold Instructions: Not currently taking multivitamin Tablet 1 tab PO QAM Hold Instructions: Not currently taking Discontinued doxycycline hyclate 100 mg capsule 100 mg PO BID 14 Days Qty: 28 0RF clindamycin HCl 300 mg capsule 300 mg PO Q6H 14 Days Qty: 56 0RF clindamycin HCl 150 mg capsule 150 mg PO Q6H 14 Days Qty: 56 0RF Discharge Orders: Discharge Order (Routine); Ordered 09/17/23 Ordered By: Gladys Burns Patient Education: Endometritis (IP) Additional Instructions: Please scheduled follow up in the clinic within the next 1 week. Activity Level: Activity as Tolerated Activity Detail: Pelvic rest x 2 weeks Discharge Diet: Regular Follow Up Appointments: Provider,Not a Local [Primary Care Provider] - Forms: MyHealth Info Instructions
[2023-09-17] MEDS: IBUPROFEN 600 MG TABLET PO (10:02)
[2023-09-17] MEDS: AMOXICILLIN/CLAVULANATE 875 mg/125 mg TABLET PO (11:08)
[2023-09-17] MEDS: ACETAMINOPHEN 325 MG TABLET 650 MG PO (11:45)
--- NOTE | 2023-09-17 13:20 | PC.NURSE ---
Prescription clarified with Dr. Burns, quantity intended to be 14 tablets not 7= 7 days. Updated Lis's in [facility].
--- NOTE | 2023-09-17 15:54 | PC.NURSE ---
The patient discharged home with her this afternoon, all discharge paperwork was sent and signed by the patient. Reported mild abdominal pain upon discharge as well as burning when urinating. Ambulated off the unit. All perscriptions were sent to her preferred pharmacy. Follow up appointment was scheduled with OB as well. FEDERICA MUSA RN
--- OUTSIDE RECORDS SUMMARY | 2023-09-18 14:44 | XMS_ITS | Continuity of Care Document ---
Author Name Unknown Organization [facility] Address [address] [place] [address] Phone Care Team Providers Care Typewriter Aligner Name Role Phone Diogenes Thomas Unavailable Unavailable Procedures Procedure Date Initial Hospital Care, Low Advance Directives Directive Yes / No Effective Date File Name No Information Encounters Encounter Description Practice Location Reason(s) For Visit Diagnoses Date Provider Providers Copied on Encounter Initial Hospital Care, [facility], [address], [place], [place], [id number], [place] tel:[phone] [facility] No Information Chris Shetty. [facility], [address], [place], [place], [id number], [place]. tel:[phone] Referring Provider: Reji Paredes, [place] [address] [facility] [address], [place], [address]. tel:[phone] Family History Family Member Type Diagnosis Age At Onset No Information Payers Payer name Insurance type Covered constitution party ID Ian blakeelizabeth(s) [employer] [id number] Social History Type Description Quantity Date Captured [...]
--- OUTSIDE RECORDS SUMMARY | 2023-09-18 14:45 | XMS_ITS | Continuity of Care Document ---
Author Name Unknown Organization [facility] Address [address] [place] [address] Phone Care Team Providers Care Document Imaging Specialist Name Role Phone Diogenes Thomas Unavailable Unavailable Procedures Procedure Date Initial Hospital Care, Low Advance Directives Directive Yes / No Effective Date File Name No Information Encounters Encounter Description Practice Location Reason(s) For Visit Diagnoses Date Provider Providers Copied on Encounter Initial Hospital Care, [facility], [address], [place], [place], [id number], [place] tel:[phone] [facility] No Information Chris Shetty. [facility], [address], [place], [place], [id number], [place]. tel:[phone] Referring Provider: Reji Paredes, [employer] [address] [facility] [address], [address]. tel:[phone] Family History Family Member Type Diagnosis Age At Onset No Information Payers Payer name Insurance type Covered democrat ID Ian blakeelizabeth(s) [employer] [id number] Social History Type Description Quantity Date Captured [...]
== END 2023-09-17 14:30 | disposition home or self-care (01) | DRG 721 ==
LOC: ED 20:51 → MEDSURG 09-16 08:27
PROVIDERS: Obstetrics & Gynecology; Admitting Provider Obstetrics & Gynecology; Emergency Provider Emergency Medicine; Visit Provider Obstetrics & Gynecology
DX: T81.40XA Infection following a procedure, unspecified, initial encounter (principal); N71.0 Acute inflammatory disease of uterus; B95.2 Enterococcus as the cause of diseases classified elsewhere
CPT/HCPCS: 36415; 76830; 80048; 80053; 81001; 84450; 84460; 84702; 85025; 86140; 87070; 87075; 87186; 87205; 93976; 99284; A9270; J0694; J1200; J1885; J2405; J2550; J3010; J7030; J7120

== ENCOUNTER 2023-10-02 08:10 | Outpatient (REF) | payer BC, SELFPAY ==
--- OUTSIDE RECORDS SUMMARY | 2023-10-03 07:26 | XMS_ITS | Continuity of Care Document ---
Author Name Unknown Organization [facility] Address [address] [place] [address] Phone Care Team Providers Care Edi Programmer Analyst Name Role Phone Diogenes Thomas Unavailable Unavailable Procedures Procedure Date Initial Hospital Care, Low Advance Directives Directive Yes / No Effective Date File Name No Information Encounters Encounter Description Practice Location Reason(s) For Visit Diagnoses Date Provider Providers Copied on Encounter Initial Hospital Care, [facility], [address], [place], [place], [id number], [place] tel:[phone] [facility] No Information Chris Shetty. [facility], [address], [place], [place], [address], [place]. tel:[phone] Referring Provider: Reji Paredes, [place] [address] [facility] [address], [place], [address]. tel:[phone] Family History Family Member Type Diagnosis Age At Onset No Information Payers Payer name Insurance type Covered green party ID Ian blakeelizabeth(s) [employer] [id number] Social History Type Description Quantity Date Captured [...]
== END 2023-10-02 08:11 | disposition home or self-care (01) ==
LOC: NFLDREF 08:10
PROVIDERS: Visit Provider Obstetrics & Gynecology
DX: R10.2 Pelvic and perineal pain (principal)
CPT/HCPCS: 87493

== ENCOUNTER 2024-01-18 13:27 | Outpatient (CLI) | payer OTHER, BC, SELFPAY ==
--- OUTSIDE RECORDS SUMMARY | 2024-01-26 11:54 | XMS_ITS | Encounter Summary ---
Author Name Unknown Organization [place] Address [facility] [place] [address] Care Team Providers Care Patient Resource Specialist Name Role Phone Matti Lopez MD Unavailable Inez Ryan MD Unavailable [phone] Encounter Details Date Type Department Care Team (Late st Contact Info) Description 09/05/2022 [facility] Medical Advice [address] [address] Elan Gutierrez, JET SKI MECHANIC Social History Tobacco Use Types Packs/Day Years Used Date Smoking Tobacco: Never Smokeless Tobacco: Never Alcohol Use Standard Drinks/Week Comments Yes 5 (1 standard drink = 0.6 oz pure alcohol) 3 servings in one sitting, twice a month PHQ-2 Answer Date Recorded PHQ-2 Score 0 04/28/2022 Sex and Gender Information Value Date Recorded Sex Assigned at Not on file Gender Identity Not on file Sexual Orientation Not on file documented as of this encounter Plan of Treatment Not on file documented as of this encounter Visit Diagnoses Not on filedocumented in this encounter Additional Health Concerns Assessment Noted Time PHQ-9 Depression Total Score: 0 05/01/20 20 7:05 AM CDT documented as of this encounter Care Teams Patient Resource Specialist Relationship Specialty Start Date End Date Matti Lopez MD [address] [facility] [address] [place] [address] Assigned Surgical Provider 06/13/21 [place] [address] [place] [address] Assigned PCP 05/07/22 documented as of this encounter
--- OUTSIDE RECORDS SUMMARY | 2024-01-26 11:54 | XMS_ITS | Referral Summary ---
Author Name Unknown Organization [facility] Address [address] [place] [address] Care Team Providers Care Test Center Manager Name Role Phone West Jha MD Primary Care Provider Jevon meza [facility] - Unavailable [phone] Allergies Active Allergy Reactions Criticality Noted Date Comments Glucosamine Hives High 04/27/2017 Hydrocodone-Acetaminoph en Hives 07/31/2016 Iodinated Contrast Media Hives 07/31/2016 CT Levofloxacin Anaphylaxis High 06/12/2011 Metrizamide Hives High 10/04/2017 Metronidazole Itching,Other Low 07/25/2018 Mouth itching, dry mouth Mouth itching, dry mouth Mouth itching, dry mouth Mouth itching, dry mouth Morphine Unknown 10/04/2017 Other reaction(s): Other (see comments) Pt not sure what reaction was, was in previous records Pt not sure what reaction was, was in previous records Mushroom Other,Rash 04/27/2017 Other reaction(s): Other (see comments) Bumps in the back of her throat Bumps in the back of er throat Bumps in the back of her throat Nut - Unspecified Itching 10/04/2017 Shellfish Containing Products Swelling, lips/tongue 04/10/2018 Other reaction(s): Angioedema Tree Nut Swelling, lips/tongue 04/10/2018 Medications Medication Sig Dispensed Refills Start Date End Date Status dextroamphetamine-amph etamine (ADDERALL SR) 20 mg oral extended release capsule 24 HR Take 40 mg by mouth Daily. 09/18/2017 Active mometasone (ASMANEX) 220 mcg/dose oral inhaler Inhale 1 puff Daily. 11/05/2020 Active albuterol HFA (PROVENTIL;VENTOLIN HFA) 90 mcg/actuation Inhl inhaler Inhale 2 puffs. 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 Social History Tobacco Use Types Packs/Day Years Used Date Smoking Tobacco: Never Smokeless Tobacco: Never Sex and Gender Information Value Date Recorded Sex Assigned at Not on file Gender Identity Not on file Sexual Orientation Not on file Last Filed Vital Signs Vital Sign Reading Time Taken Comments Blood Pressure 140/85 09/05/2022 12:28 AM [employer] Pulse 89 09/05/2022 12:28 AM [employer] Temperature 36.4 ??C (97.6 ??F) 09/05/2022 12:[address] Respiratory Rate 16 09/05/2022 12:28 AM [employer] Oxygen Saturation 100% 09/05/2022 12:28 AM [employer] Inhaled Oxygen Concentration - - Weight 68 kg (150 lb) 05/21/2022 1:15 PM CDT Height 167.6 cm (5' 6) 11/09/2021 10:02 AM [employer] Body Mass Index 24.21 11/09/2021 10:02 AM [employer] Plan of Treatment Not on file Care Teams Test Center Manager Relationship Specialty Start Date End Date West Jha MD PCP - General Family Medicine 10/04/21 [facility] - [address] [place] [id number] PCP - Primary Care Clinic 10/04/21
--- OUTSIDE RECORDS SUMMARY | 2024-01-26 11:54 | XMS_ITS | Encounter Summary ---
Author Name Unknown Organization [facility] Address [address] [place] [address] Care Team Providers Care Knifeman Name Role Phone West Jha MD Primary Care Provider [phone] West Jha MD Unavailable [phone] Geraldine-Matti Morgan MD Unavailable Inze Ryan MD Unavailable [phone] Encounter Details Date Type Department Care Team (Late st Contact Info) Description 04/20/2022 [facility] Medical Advice [address] [address] Brittni Muir Social History Tobacco Use Types Packs/Day Years Used Date Smoking Tobacco: Never Smokeless Tobacco: Never Alcohol Use Standard Drinks/Week Comments Yes 5 (1 standard drink = 0.6 oz pure alcohol) 3 servings in one sitting, twice a month PHQ-2 Answer Date Recorded PHQ-2 Score 0 11/05/2020 Sex and Gender Information Value Date Recorded Sex Assigned at Not on file Gender Identity Not on file Sexual Orientation Not on file documented as of this encounter Plan of Treatment Not on file documented as of this encounter Visit Diagnoses Not on filedocumented in this encounter Additional Health Concerns Assessment Noted Time PHQ-9 Depression Total Score: 0 05/01/20 7:05 AM CDT documented as of this encounter Care Teams Knifeman Relationship Specialty Start Date End Date West Jha MD PCP - General Family Practice 05/11/17 08/21/22 [place] [address] [facility] [place] [address] Assigned PCP 11/08/20 05/06/22 Matti Lopez MD [address] [facility] [address] [place] [address] Assigned Surgical Provider 06/13/21 12/16/22 [place] [address] [place] [address] Assigned PCP 05/07/22 documented as of this encounter
--- OUTSIDE RECORDS SUMMARY | 2024-01-26 11:54 | XMS_ITS | Clinical Summary ---
Author Name Unknown Organization [place] Address [facility] [place] [address] Care Team Providers Care Nuclear Auxiliary Operator Name Role Phone Inez Ryan MD Unavailable [phone] Allergies Active Allergy Reactions Criticality Noted Date Comments Contrast Dye Hives 07/31/[address] Glucosamine Hives Medium 04/27/2017 Iodinated Contrast Media 02/16/2017 Levofloxacin Anaphylaxis High 06/07/2012 Metrizamide Hives Medium 10/04/2017 Metronidazole Other (See Comments) Low 07/25/2018 Mouth itching, dry mouth Morphine Unknown 07/16/2018 Mushroom Other (See Comments) 04/27/2017 Bumps in the back of her throat Nuts Itching,Swelling Medium 08/16/2017 Shellfish Allergy Angioedema 04/10/2018 Shellfish-Derived Products Hives 04/27/2017 Hydrocodone-Acetaminoph en Hives 01/21/2017 Medications Medication Sig Dispensed Refills Start Date End Date Status Multiple Vitamins-Minerals (PHYTOMULTI PO) Take one in the morning and one at night 0 Active Cholecalciferol (VITAMIN D3) LIQD 1000 international unit(s) - two drops in the morning 0 Active albuterol (PROAIR HFA/PROVENTIL HFA/VENTOLIN HFA) 108 (90 Base) MCG/ACT inhalerIndications: Moderate persistent asthma without complication Inhale 2 puffs into the lungs every 6 hours as needed for shortness of breath / dyspnea or wheezing 1 Inhaler 1 05/01/2020 Active mometasone (ASMANEX TWISTHALER) 220 MCG/INH inhalerIndications: Moderate persistent asthma without complication Inhale 1 puff into the lungs every evening 3 Inhaler 3 11/05/2020 Active prochlorperazine (COMPAZINE) 5 MG tablet Take 5 mg by mouth every 6 hours as needed for nausea or vomiting 0 Active ondansetron (ZOFRAN-ODT) 4 MG ODT tab Take 1 tablet (4 mg) by mouth every 8 hours as needed for nausea 21 tablet 0 06/09/2021 Active montelukast (SINGULAIR) 10 MG tabletIndications:M oderate persistent asthma without complication,Season al allergies Take 1 tablet (10 mg) by mouth At Bedtime 30 tablet 1 07/08/2021 Active cetirizine (ZYRTEC) 10 MG tabletIndications:S easonal allergies Take 1 tablet (10 mg) by mouth daily 0 07/08/2021 Active amitriptyline (ELAVIL) 10 MG tabletIndications:N onintractable episodic headache, unspecified headache type Take 1 tablet (10 mg) by mouth At Bedtime May increase to 2 tabs at night after 3 days 60 tablet 0 07/08/2021 Active amphetamine-dextroa mphetamine (ADDERALL XR) 20 MG 24 hr capsuleIndications: ADHD (attention deficit hyperactivity disorder), combined type Take 2 capsules (40 mg) by mouth daily 60 capsule 0 04/22/2022 Active Active Problems Problem Noted Date Diagnosed Date Moderate persistent asthma without complication 10/08/2019 ADHD (attention deficit hype ractivity disorder), combined type 12/28/2017 Aseptic meningitis 04/21/2017 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 Headache 04/18/2017 Resolved Problems Problem Noted Date Diagnosed Date Resolved Date Pain 04/14/2018 07/08/2021 Abdominal pain, generalized 12/14/2017 07/08/2021 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 10/02/2017 Meningitis, unspecified(322.9) 04/20/2017 10/02/2017 Immunizations Name Administration Dates Next Due HEPA 02/28/2013,03/22/2012 Influenza Vaccine >6 months,quad, PF 10/05/2019, 08/30/2018 Meningococcal ACWY (Menactra??) 03/22/2012 TDAP Vaccine (Adacel) 08/31/2015 Family History Medical History Relation Comments Family History Negative Father Family History Negative Mother Breast Cancer Paternal Grandmother Relation Status Comments Father Alive Mother Alive Paternal Grandmother Alive Social History Tobacco Use Types Packs/Day Years Used Date Smoking Tobacco: Never Smokeless Tobacco: Never Alcohol Use Standard Drinks/Week Comments Yes 5 (1 standard drink = 0.6 oz pure alcohol) 3 servings in one sitting, twice a month PHQ-2 Answer Date Recorded PHQ-2 Score 0 04/28/2022 Adolescent Education Answer Date Record ed Getting School Help Needed Not on file 07/14 Sex and Gender Information Value Date Recorded Sex Assigned at Not on file Gender Identity Not on file Sexual Orientation Not on file Last Filed Vital Signs Vital Sign Reading Time Taken Comments Blood Pressure 120/62 07/08/2021 7:18 AM CDT Pulse 92 07/08/2021 7:18 AM CDT Temperature 37.1 ??C (98.7 ??F) 07/08/2021 7:18 AM CD T Respiratory Rate 14 07/08/2021 7:18 AM CDT Oxygen Saturation 99% 06/10/2021 12:52 PM CDT Inhaled Oxygen Concentration - - Weight 64.9 kg (143 lb) 07/08/2021 7:18 AM CDT Height 167.6 cm (5' 6) 07/08/2021 7:18 AM CDT Body Mass Index 23.08 07/08/2021 7:18 AM CDT Plan of Treatment Health Maintenance Due Date Last Done Comments ADVANCE CARE PLANNING 1994 Pneumococcal Vaccine: Pediatrics (0 to 5 Years) and At-Risk Patients (6 to 64 Years) (1 of 2 - PCV) 2000 HEPATITIS C SCREENING 2012 HEPATITIS B IMMUNIZATION (1 of 3 - 19+ 3-dose series) 2013 YEARLY PREVENTIVE VISIT 07/25/2019 07/25/2018 ASTHMA CONTROL TEST 01/05/2022 07/08/2021, 11/05/2020, 05/01/2020, Additional history exists ANNUAL REVIEW OF HM ORDERS 07/08/2022 07/08/2021 ASTHMA ACTION PLAN 07/08/2022 07/08/2021 COVID-19 Vaccine ( season) 2023 INFLUENZA VACCINE (#1) 2023 10/05/2019, 2017 PHQ-2 (once per calendar year) 2023 04/28/2022, 11/05/2020, 05/01/2020, Additional history exists PAP 03/15/2025 03/15/2022, 10/0 12/2017, 04/22/2015 DTAP/TDAP/TD IMMUNIZATION (2 - Td or Tdap) 08/31/2025 08/31/2015 MENINGITIS IMMUNIZATION Completed 03/22/2012 HIV SCREENING Completed 05/09/2017 HPV IMMUNIZATION Aged Out No longer e ligible based on patient's age to complete this topic IPV IMMUNIZATION Aged Out No longer e ligible based on patient's age to complete this topic RSV MONOCLONAL ANTIBODY Aged Out No l onger eligible based on patient's age to complete this topic Advance Directives For more information, please contact: [phone] Latest Code Status on File Code Status Date Activated Date Inactivated Comments Full Code 04/18/2018 10:07 AM 08/27/2019 5:05 PM Code Status History Code Status Date Activated Date Inactivated Comments Full Code 04/14/2018 3:05 AM 04/18/2018 10:07 AM Full Code 04/28/2017 11:43 AM 04/14/2018 3:05 AM Full Code 04/20/2017 1:27 PM 04/28/2017 11:43 AM Full Code 04/19/2017 11:02 AM 04/20/2017 1:27 PM Care Teams Nuclear Auxiliary Operator Relationship Specialty [place] [address] [place] [address] Assigned PCP 05/07/22
--- OUTSIDE RECORDS SUMMARY | 2024-01-26 11:54 | XMS_ITS | Referral Summary ---
Author Name Unknown Organization [place] Address [facility] [place] [address] Care Team Providers Care Carton Making Machine Operator Name Role Phone Inez Ryan MD Unavailable [phone] Allergies Active Allergy Reactions Criticality Noted Date [...] ACWY (Menactra??) 03/22/2012 TDAP Vaccine (Adacel) 08/31/2015 Social History Tobacco Use Types Packs/Day Years [...] 07/08/2021 7:18 AM CDT Plan of Treatment Not on file Advance Directives For more information, please contact: [phone] Latest Code Status on File Code Status [...] 11:02 AM 04/20/2017 1:27 PM Care Teams Carton Making Machine Operator Relationship Specialty [place] [address] [place] [address] Assigned PCP 05/07/22
--- OUTSIDE RECORDS SUMMARY | 2024-01-26 11:54 | XMS_ITS | Clinical Summary ---
Author Name Unknown Organization [facility] Address [address] [place] [address] Care Team Providers Care Collar Packer Name Role Phone West Jha MD Primary Care Provider Jevon meza [facility] - Unavailable [phone] Allergies Active Allergy Reactions Criticality Noted Date [...] Comments Blood Pressure 140/85 09/05/2022 12:28 AM BICYCLE MECHANIC Pulse 89 09/05/2022 12:28 AM BICYCLE MECHANIC Temperature 36.4 ??C (97.6 ??F) 09/05/2022 12:[address] Respiratory Rate 16 09/05/2022 12:28 AM BICYCLE MECHANIC Oxygen Saturation 100% 09/05/2022 12:28 AM BICYCLE MECHANIC Inhaled Oxygen Concentration - - Weight 68 kg (150 lb) 05/21/2022 1:15 PM CDT Height 167.6 cm (5' 6) 11/09/2021 10:02 AM BICYCLE MECHANIC Body Mass Index 24.21 11/09/2021 10:02 AM BICYCLE MECHANIC Plan of Treatment Health Maintenance Due Date Last Done Comments Hepatitis C Screening 1994 Pap Smear 1994 Anxiety Screening (JOHN-2) 1995 Depression Assessment (PHQ-2) 1995 Pneumococcal <65 (1 of 2 - PCV) 2000 COVID-19 Vaccine ( - 2022-2 4 season) 2023 Influenza Vaccine (Season Ended) 2024 10/05/2019, 08/30/2018, 09/07/2015, Additional history exists Adult Tetanus Booster 08/31/2025 08/31/2015, 012 Care Teams Collar Packer Relationship Specialty Start Date End Date West Jha MD PCP - General Family Medicine 10/04/21 [facility] - [id number] [place] [id number] PCP - Primary Care Clinic 10/04/21
--- OUTSIDE RECORDS SUMMARY | 2024-01-26 11:55 | XMS_ITS | Encounter Summary ---
Author Name Unknown Organization [place] Address [address] [place] [address] Care Team Providers Care Clinical Education Assistant Name Role Phone West Jha MD Primary Care Provider [phone] West Jha MD Unavailable [phone] Joyce Triana FIELD IDENTIFICATION SPECIALIST Unavailable [phone] Monica Arias PA-C Unavailable West Jha MD Unavailable [phone] [facility] January Beverly PERDUE Unavailable + [phone] West Jha MD Unavailable [phone] Matti Lopez MD Unavailable Inez Ryan MD Unavailable [phone] Encounter Details Date Type Department Care Team (Late st Contact Info) Description 07/30/2019 [facility] [id number] [place] [id number] Lyudmila Hamm Social History Tobacco Use Types Packs/Day Years Used Date Smoking Tobacco: Never Smokeless Tobacco: Never Alcohol Use Standard Drinks/Week Comments Yes 5 (1 standard drink = 0.6 oz pure alcohol) 3 servings in one sitting, twice a month PHQ-2 Answer Date Recorded PHQ-2 Score 0 10/31/2018 Sex and Gender Information Value Date Recorded Sex Assigned at Not on file Gender Identity Not on file Sexual Orientation Not on file documented as of this encounter Plan of Treatment Not on file documented as of this encounter Visit Diagnoses Not on filedocumented in this encounter Additional Health Concerns Assessment Noted Time PHQ-9 Depression Total Score: 0 04/21/20 18 7:12 AM CDT documented as of this encounter Care Teams Clinical Education Assistant Relationship Specialty Start Date End Date West Jha MD PCP - General Family Practice 05/11/17 08/21/22 [place] [address] [place] [address] Assigned PCP 10/13/19 10/10/20 Joyce Triana LSW [facility] Multifocal Button Generator Primary Care - CC 08/29/19 Monica Arias PA-C [address] [place] [address] Assigned PCP 09/22/19 10/12/19 [place] [address] [place] [address] Assigned PCP 05/28/17 09/21/19 [place] [address] [place] [address] Assigned PCP 10/11/20 11/07/20 [place] [address] [place] [address] Assigned PCP 11/08/20 05/06/22 Matti Lopez MD [address] [facility] [address] [place] [address] Assigned Surgical Provider 06/13/21 12/16/22 [place] [address] [place] [address] Assigned PCP 05/07/22 documented as of this encounter
--- OUTSIDE RECORDS SUMMARY | 2024-01-26 11:55 | XMS_ITS | Encounter Summary ---
Author Name Unknown Organization [place] Address [address] [place] [address] Care Team Providers Care Gis Developer Name Role Phone West Jha MD Primary Care Provider + [phone] West Jha MD Unavailable [phone] [facility] Unavailable Inez Ryan MD Unavailable [phone] Encounter Details Date Type Department Care Team (Late st Contact Info) Description 02/08/2021 My[facility] Medical Advice [address] [phone] Brittni Muir Social History Tobacco [...] on file Sexual Orientation Not on file COVID-19 Exposure Response Date Recorded In the last month, have you been in contact with someone who was confirmed or suspected to have Coronavirus / COVID-19? No / Unsure 02/08/2021 7:48 AM CDT documented as of this encounter Plan of Treatment Not on file documented as of this encounter Visit Diagnoses Not on filedocumented in this encounter Additional Health Concerns Assessment Noted Time PHQ-9 Depression Total Score: 0 05/01/20 7:05 AM CDT documented as of this encounter Care Teams Gis Developer Relationship Specialty Start Date End Date West Jha MD PCP - General Family Practice 05/11/17 08/21/22 [place] [address] [facility] [place] [address] Assigned PCP 11/08/20 05/06/22 GeraldineMatti Morgan MD [address] [facility] [address] [place], [place] [address] Assigned Surgical Provider 06/13/21 12/16/22 [place] [address] [place] [address] Assigned PCP 05/07/22 documented as of this encounter
--- OUTSIDE RECORDS SUMMARY | 2024-01-26 11:55 | XMS_ITS | Encounter Summary ---
Author Name Unknown Organization [facility] Address [address] [place] [address] Care Team Providers Care Supervisor Drying And Winding Name Role Phone No Primary/Referring, Phy Primary Care Provider Unavailable Encounter Details Date Type Department Care Team (Late st Contact Info) Description 06/24/2014 ER Follow Up [facility]line [address] [facility] [address] [place], [place] [id number] Dilma Martinez RN [address] [place], [place] [address] Social History Tobacco Use Types Packs/Day Years Used Date Smoking Tobacco: Never Assessed Sex and Gender Information Value Date Recorded Sex Assigned at Not on file Gender Identity Not on file Sexual Orientation Not on file documented as of this encounter Plan of Treatment Not on file documented as of this encounter Visit Diagnoses Not on filedocumented in this encounter Care Teams Supervisor Drying And Winding Relationship Specialty Start Date End Date No Primary/Referring, Wilmery PCP - General 06/03/17 documented as of this encounter
--- OUTSIDE RECORDS SUMMARY | 2024-01-26 11:55 | XMS_ITS | Encounter Summary ---
Author Name Unknown Organization [place] Address [facility] [place] [address] Care Team Providers Care Paper Cup Handle Machine Operator Name Role Phone West Jha MD Primary Care Provider + [phone] West Jha MD Unavailable [phone] [facility] Unavailable Inez Ryan MD Unavailable [phone] Reason for Visit * Reason Onset Date Comments Refill Request 04/20/2022 Encounter Details Date Type Department Care Team ([facility] st Contact Info) Description 04/20/2022 Ian Lantigua [facility] [address] [place] [address] [place] [address] [place] [address] Refill Request Social History Tobacco Use Types Packs/Day Years [...] on file documented as of this encounter Miscellaneous Notes * Telephone Encounter - West Jha MD - 04/22/2022 12:53 PM CDT Refilled. * Telephone Encounter - Hilary Patton MA - 04/21/2022 4:36 PM CDT Patient calling again for refill. I have notified her that a message has already been sent to Dr. Jha and that we need to be patient and wait for his response. Hilary Patton, Mental Health Aide * Telephone Encounter - Phuong Rosas RN - 04/21/2022 10:19 AM CDT Pt is scheduled for appt for 04/28/22 with Lisa, calling to see if can get short term refill until appt. Phuong Knowles RN * Telephone Encounter - Brittni Muir - 04/20/2022 5:05 PM CDT Message sent to patient appointment due/ establish care with new pcp Brittni Muir/ Mental Health Aide * Telephone Encounter - West Jha MD - 04/20/2022 4:52 PM CDT Needs visit. May want new PCP for medication visit. * Telephone Encounter - Aneta Mancera RN - 04/20/2022 2:40 PM CDT Routing refill request to provider for review/approval because: Drug not on the [facility] refill protocol Aneta Mancera RN documented in this encounter Plan of Treatment Not on file documented as of this encounter Visit Diagnoses Diagnosis ADHD (attention deficit hyperactivity disorder), combined type Attention deficit disorder with hyperactivity documented in this encounter Additional Health Concerns Assessment Noted Time PHQ-9 Depression Total Score: 0 05/01/20 7:05 AM CDT documented as of this encounter Care Teams Paper Cup Handle Machine Operator Relationship Specialty Start Date End Date West Jha MD PCP - General Family Practice 05/11/17 08/21/22 [place] [address] [facility] [place] [address] Assigned PCP 11/08/20 05/06/22 Matti Lopez MD [address] [facility] [address] [place] [address] Assigned Surgical Provider 06/13/21 12/16/22 [place] [address] [place] [address] Assigned PCP 05/07/22 documented as of this encounter
--- OUTSIDE RECORDS SUMMARY | 2024-01-26 11:55 | XMS_ITS | Clinical Summary ---
Author Name Unknown Organization [facility] Address [address] [place] [address] Care Team Providers Care Cloth Bleaching Supervisor Name Role Phone Elsewhere, Pcp Primary Care Provider Unavailabl e Source Comments Patient records contain information from all sites at [facility]. For routine questions regarding patient records, call [phone] during business hours, M-F 8:00 AM - 5:00 PM Central Time. Record requests for emergency care only can be directed to [phone] at any time.[facility] Allergies Active Allergy Reactions Criticality Noted Date Comments Glucosamine Hives (Reselect Reaction) 04/27/2017 Hydrocodone-Acetaminoph en Hives (Reselect Reaction) 07/31/2016 Iodinated Contrast Media Hives (Reselect Reaction) 07/31/2016 Levofloxacin Anaphylaxis 03/08/2015 Metrizamide Hives (Reselect Reaction) 10/04/2017 Metronidazole Itching Low 07/25/2018 Mouth itching, dry mouth Morphine Other (see comments) 10/04/2017 Pt not sure what reaction was, was in previous records Mushroom Other (see comments) 10/04/2017 Bumps in the back of her throat Nut - Unspecified Itching 10/04/2017 Shellfish Containing Products Angioedema (Reselect Reaction) 04/10/2018 Medications Medication Sig Dispensed Refills Start Date End Date Status acetaminophen (for_TYLENOL) 325 mg tablet Take 650 mg by mouth. 0 04/28/2017 Active amphetamine-dextroam phetamine (for_ADDERALL XR) 20 mg 24 hr capsule Take 40 mg by mouth. 0 09/18/2017 Active mometasone (ASMANEX) 220 mcg/ actuation (30) inhaler Inhale 220 mcg as needed. 0 06/30/2016 Active albuterol (for_PROVENTIL HFA,VENTOLIN HFA) 90 mcg/actuation inhaler Inhale 2 puffs every 6 (six) hours as needed for wheezing. 1 Inhaler 0 10/04/2017 Active EPINEPHrine (EPIPEN) 0.3 mg/0.3 mL injection syringe Inject 0.3 mg intramuscularly. 0 09/18/2018 Active Azelex 20 % cream 0 03/31/2020 Active ascorbic vkja-fpksqndi-uck (Emergen-C) 1,000 mg powder effervescent in packet Take by mouth. 0 Active ibuprofen (ADVIL,MOTRIN) 200 mg tablet Take 800 mg by mouth as directed. 0 11/14/2020 Active triamcinolone (KENALOG) 0.1 % cream Apply 1 application topically 2 (two) times a day for 10 days. Fill only if patient calls for script. 30 g 0 07/30/2022 Active ondansetron ODT (ZOFRAN-ODT) 4 mg disintegrating tablet Dissolve 1 tablet (4 mg total) in the mouth every 8 (eight) hours as needed for nausea or vomiting. 20 tablet 0 08/04/2022 Active triamcinolone (KENALOG) 0.1 % creamIndications:Madi h Apply 1 Application topically 2 (two) times a day. Apply in a thin layer to affected areas for up to two weeks 80 g 2 11/13/2023 Active amphetamine-dextroam phetamine (ADDERALL XR) 20 mg 24 hr capsule Take 2 Capsules (40 mg) by mouth once daily. 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 Encounters Date Type Department Care Team Description 11/13/2023 4:40 PM YARD PILOT Telemedicine [facility] at [address] [place] [address] SieJoaquin morgan APRN, C.N.P., M.SDelon Am[place] (Primary Dx) from Last 3 Months Social History Tobacco Use Types Packs/Day Years Used Date Smoking Tobacco: Never Smokeless Tobacco: Never Tobacco Cessation:Counseling Given: Not Answered Alcohol Use Standard Drinks/Week Comments Yes 0 (1 standard drink = 0.6 oz pur e alcohol) socially [facility] Utilities Answer Date Recorded In the past 12 months has e [employer], gas, oil, or water company threatened to shut off services in your home? No 11/13/2023 Exercise Vital Sign Answer Date Recorde d On average, how many days pe r week do you engage in moderate to strenuous exercise (like a brisk walk)? 3 days 11/13/2023 On average, how many minutes do you engage in exercise at this level? 40 min 11/13/2023 Hunger Vital Sign Answer Date Recorded Within the past 12 months, y ou worried that your food would run out before you got the money to buy more. Never true 11/13/19 Within the past 12 months, t he food you bought just didn't last and you didn't have money to get more. Never true 11/13/2023 PRAPARE - Transportation Answer Date Re corded In the past 12 months, has l ack of transportation kept you from medical appointments or from getting medications? No 10/24 In the past 12 months, has l ack of transportation kept you from meetings, work, or from getting things needed for daily living? No 11/13/2023 Nutrition Answer Date Recorded Nutrition: EVOO Fat Source Unknown 11/13 On average, how many serving s of fruits and vegetables do you eat per day (serving size is equal to 1 cup or approximately the size of a tennis ball)? 3-5 11/13/2023 Dental Answer Date Recorded Dental: Regular Dentist Yes 11/13/19 Employment Answer Date Recorded Employment status Employed and actively working without restrictions 11/13/2023 Housing Stability Answer Date Recorded What is your living situation today? I have a [employer] [facility] to live 11/13/2023 Sex and Gender Information Value Date Recorded Sex Assigned at Female 11/13/2023 4:09 PM YARD PILOT Gender Identity Female 11/13/2023 4:09 PM YARD PILOT Sexual Orientation Straight 11/13/2023 4: 09 PM YARD PILOT Last Filed Vital Signs Vital Sign Reading Time Taken Comments Blood Pressure 123/87 07/29/2022 11:25 AM CDT Pulse 101 08/04/2022 3:29 PM CDT Temperature 37.2 ??C (99 ??F) 08/04/2022 3:29 PM CDT Respiratory Rate 20 08/04/2022 3:29 PM CDT Oxygen Saturation 100% 08/04/2022 3:29 PM CDT Inhaled Oxygen Concentration - - Weight 68 kg (149 lb 14.6 oz) 08/04/2022 3:29 PM CDT Height 167.6 cm (5' 5.98) 08/04/2022 3:29 PM CD T Body Mass Index 24.21 08/04/2022 3:29 PM CDT Plan of Treatment Health Maintenance Due Date Last Done Comments Cervical Cancer Screening 1994 HIV Screening 1994 Hepatitis C Screening 1994 Hepatitis B Vaccines (1 of 3 - 19+ 3-dose series) 2013 COVID-19 Vaccine ( - 2022- season) 2023 Influenza Vaccine (#1) 2023 9, 08/30/2018, 09/07/2015, Additional history exists Depression Screening (Annual PHQ-2) 10/23/2023 DTaP,Tdap,and Td Vaccines (3 - Td or Tdap) 08/31/2025 08/31/2015, 03/22/2012 HPV Vaccines Aged Out No longer eligi ble based on patient's age to complete this topic Pneumococcal vaccine (0-64 years) Aged Out No longer eligible based on patient's age to complete this topic Care Teams Cloth Bleaching Supervisor Relationship Specialty Start Date End Date Elsewhere, Pcp PCP - General Internal Medicine 12/22/21
--- OUTSIDE RECORDS SUMMARY | 2024-01-26 11:55 | XMS_ITS | Referral Summary ---
Author Name Unknown Organization [facility] Address [address] [place] [address] Care Team Providers Care Financial Representative Name Role Phone Elsewhere, Pcp Primary Care Provider Unavailabl e Source Comments Patient records contain information from all sites at [facility]. For routine questions regarding patient records, call [phone] during business hours, M-F 8:00 AM - 5:00 PM Central Time. Record requests for emergency care only can be directed to [phone] at any time.[facility] Encounters Date Type Department Care Team Description 11/13/2023 4:40 PM CANDY MAKER Telemedicine [facility] Express Care at [address] [phone] Joaquin Kim, TRISTAN, C.N.P., M.S.N. 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 I have a [facility] place to live 11/13/2023 Sex and Gender Information Value Date Recorded Sex Assigned at Female 11/13/2023 4:09 PM CANDY MAKER Gender Identity Female 11/13/2023 4:09 PM CANDY MAKER Sexual Orientation Straight 11/13/2023 4: 09 PM CANDY MAKER Last Filed Vital Signs Vital Sign Reading [...] 08/04/2022 3:29 PM CDT Plan of Treatment Not on file Care Teams Financial Representative Relationship Specialty Start Date End Date Elsewhere, Pcp PCP - General Internal Medicine 12/22/21
--- OUTSIDE RECORDS SUMMARY | 2024-01-26 11:55 | XMS_ITS | Continuity of Care Document ---
Author Name Unknown Organization [facility] Address [address] [place] [address] Phone Care Team Providers Care Lock Up Worker Name Role Phone Diogenes Thomas Unavailable Unavailable Procedures Procedure Date Initial Hospital Care, Low Advance Directives Directive Yes / No Effective Date File Name No Information Encounters Encounter Description Practice Location Reason(s) For Visit Diagnoses Date Provider Providers Copied on Encounter Initial Hospital Care, [facility], [place], [place], [id number], [place] tel:[phone] [facility] No Information Chris Shetty. [facility], [address], [place], [place], [id number], [place]. tel:[phone] Referring Provider: Reji Paredes, [employer] ([employer]) [address] [facility] [address], [address]. tel:[phone] Family History Family Member Type Diagnosis Age At Onset No Information Payers Payer name Insurance type Covered republican ID Ian blakeelizabeth(s) [employer] [id number] Social History Type Description Quantity Date Captured [...]
--- OUTSIDE RECORDS SUMMARY | 2024-01-26 11:55 | XMS_ITS | Encounter Summary ---
Author Name Unknown Organization [facility] Address [address] [place] [address] Care Team Providers Care Line Crew Supervisor Name Role Phone West Jha MD Primary Care Provider [phone] Orquidea Gregory RN Unavailable Jennifer Hylton RN Unavailable [phone] sLisseth RN Unavailable [phone] West Jha MD Unavailable [phone] West Jha MD Unavailable [phone] Joyce Triana BENCH MOLDER Unavailable [phone] Monica Arias PAYariC Unavailable West Jha MD Unavailable [phone] Jose Debra MD Unavailable [phone] West Jha MD Unavailable Matti Lopez MD Unavailable Inez Ryan MD Unavailable [phone] Encounter Details Date Type Department Care Team (Late st Contact Info) Description 01/08/2018 MyC Medical Advice [facility] [address] [place] [address] Radha Saunders APRN LITHOGRAPHIC PRINTING MACHINIST [address] [place] [address] [address] [place] [id number] Social History Tobacco Use Types Packs/Day Years Used Date Smoking Tobacco: Never Smokeless Tobacco: Never Alcohol Use Standard Drinks/Week Comments Yes 0 (1 standard drink = 0.6 oz pur e alcohol) Sex and Gender Information Value Date Recorded Sex Assigned at Not on file Gender Identity Not on file Sexual Orientation Not on file documented as of this encounter Plan of Treatment Not on file documented as of this encounter Visit Diagnoses Not on filedocumented in this encounter Care Teams Line Crew Supervisor Relationship Specialty Start Date End Date West Jha MD PCP - General Family Practice 05/11/17 08/21/22 [place] [address] [place] [address] PCP - Assigned PCP 05/28/17 12/25/18 Orquidea Gregory RN Nurse Coordinator Neurology 08/14/17 06/03/18 Jennifer Hylton RN Nurse Coordinator Neurology 08/16/17 04/15/19 sLisseth RN Clinic Bus Van Driver Primary Care - CC 04/19/1804/24 [place] [address] [place], [place] [address] Assigned PCP 10/13/19 10/10/20 Joyce Triana, BENCH MOLDER Clinic Bus Van Driver Primary Care - CC 08/29/19 Monica Arias PA-C [address] [place] [address] Assigned PCP 09/22/19 10/12/19 [place] [address] [place] [address] Assigned PCP 05/28/17 09/21/19 [place] [address] [place] [address] Assigned PCP 10/11/20 11/07/20 [place] [address] [address] [place] [address] Assigned PCP 11/08/20 05/06/22 Matti Lopez MD [address] [facility] [address] [place] [address] Assigned Surgical Provider 06/13/21 12/16/22 [place] [address] [address] [place] [address] Assigned PCP 05/07/22 [facility] 04/19/18 05/22/18 documented as of this encounter
--- OUTSIDE RECORDS SUMMARY | 2024-01-26 11:55 | XMS_ITS ---
Author Name Unknown Organization [facility] Address [address] [place] [address] Care Team Providers Care Chef Instructor Name Role Phone Unavailable Unavailable Unavailable Surgery Details Not on file Complications Check Surgery Details section. Procedure Estimated Blood Loss Check Surgery Details section. Procedure Findings Check Surgery Details section. Procedure Specimens Taken Check Surgery Details section.
--- OUTSIDE RECORDS SUMMARY | 2024-01-26 11:55 | XMS_ITS | Encounter Summary ---
Author Name Unknown Organization [facility] Address [address] [place] [address] Care Team Providers Care Head Packager Name Role Phone West Jha MD Primary Care Provider + [phone] West Jha MD Unavailable [phone] [facility] Morgan MD Unavailable Inez Ryan MD Unavailable [phone] Encounter Details Date Type Department Care Team (Late st Contact Info) Description 02/11/2022 MyC Medical Advice [address] [address] Saranya Schuster, [facility] Social History Tobacco Use Types Packs/Day Years [...] Noted Time PHQ-9 Depression Total Score: 0 07/10/20 20 7:05 AM CDT documented as of this encounter Care Teams Head Packager Relationship Specialty Start Date End Date West Jha MD PCP - General Family Practice 05/11/17 08/21/22 [place] [address] [place] [address] Assigned PCP 11/08/20 05/06/22 GeraldineMatti Morgan MD [address] [facility] [address] [place] [address] Assigned Surgical Provider 06/13/21 12/16/22 [place] [address] [place] [address] Assigned PCP 05/07/22 documented as of this encounter
--- OUTSIDE RECORDS SUMMARY | 2024-01-26 11:55 | XMS_ITS | Encounter Summary ---
Author Name Unknown Organization [facility] Address [address] [place] [address] Care Team Providers Care Biofuels Production Manager Name Role Phone West Jha MD Primary Care Provider + [phone] West Jha MD Unavailable [phone] Geraldine-Matti Morgan MD Unavailable Inez Ryan MD Unavailable [phone] Encounter Details Date Type Department Care Team (Late st Contact Info) Description 10/11/2021 [facility] Medical Advice [address] [address] Brittni Muir Social History Tobacco [...] documented as of this encounter Care Teams Biofuels Production Manager Relationship Specialty Start Date End Date West Jha MD PCP - General Family Practice 05/11/17 08/21/22 [place] [address] [address] [place] [address] Assigned PCP 11/08/20 05/06/22 Matti Lopez MD [address] [facility] [address] [place] [address] Assigned Surgical Provider 06/13/21 12/16/22 [place] [address] [place] [address] Assigned PCP 05/07/22 documented as of this encounter
--- OUTSIDE RECORDS SUMMARY | 2024-01-26 11:55 | XMS_ITS | Clinical Summary ---
Author Name Unknown [facility] Address [address], [place] [address] Care Team Providers Care Copyholder Name Role Phone No Primary/Referring, Phy Primary Care Provider Unavailable Source Comments You are receiving this document as you are listed as the primary care provider,follow-up provider, or the patient has been referred to you for consultation.This is in compliance with the Medicare andMedicaid EHR Incentive Program,which states Providers who transition their patient to another setting of careor provider of care or refers their patient to another provider of care shouldprovide summary care record for each transition of care or referral. [facility] Allergies Active Allergy Reactions Criticality Noted Date Comments Iodinated Contrast Media 02/16/2017 Glucosamine Hives High 04/27/2017 Hydrocodone-Acetaminoph en 02/16/2017 Levofloxacin Anaphylaxis High 06/07/2012 Metrizamide Hives High 10/04/2017 Metronidazole Itching,Other, see comments Low 07/25/2018 Mouth itching, dry mouth Mouth itching, dry mouth Morphine Unknown 07/16/2018 Mushrooms Other, see comments 04/27/2017 Bumps in the back of er throat Nuts Angioedema High 07/16/2018 Morphine And Related 02/16/2017 Medications Medication Sig Dispensed Refills Start Date End Date Status Mometasone Furoate (ASMANEX HFA IN) Active ALBUTEROL IN Active amphetamine-dextroamp hetamine (ADDERALL XR) 20 MG 24 hour release capsule TAKE 2 CAPSULES BY MOUTH DAILY 07/16/2018 Active azithromycin (ZITHROMAX) 250 MG tablet Take 2 tablets (500 mg) by mouth on day one then take 1 tablet (250 mg) by mouth on days 2 - 5. 08/25/2019 Active Cholecalciferol (VITAMIN D3) LIQD Use. Active EPINEPHrine (EPIPEN) 0.3 MG/0.3ML injection Inject 0.3 mg intramuscularly. 09/18/2018 Active Active Problems No known active problems Social History Tobacco Use Types Packs/Day Years Used Date Smoking Tobacco: Never Smokeless Tobacco: Never Sex and Gender Information Value Date Recorded Sex Assigned at Not on file Gender Identity Not on file Sexual Orientation Not on file Last Filed Vital Signs Vital Sign Reading Time Taken Comments Blood Pressure 128/80 08/27/2019 2:43 PM [employer]CTIONS CORPORAL Pulse 95 08/27/2019 2:43 PM [employer] Temperature 36.6 ??C (97.9 ??F) 08/27/2019 2:43 PM CS T Respiratory Rate 18 08/27/2019 2:43 PM [employer] Oxygen Saturation 100% 08/27/2019 2:43 PM [employer] Inhaled Oxygen Concentration - - Weight - - Height - - Body Mass Index - - Plan of Treatment Health Maintenance Due Date Last Done Comments Cervical Cancer Screening Due 1994 Hep C Screening (Preventive Services) 1994 HIV Screening (Preventive Services) 2010 Adult Preventive Visit 2012 HepB (1) 2013 COVID-19 Vaccine (1 - 2022-2 4 season) 2023 Influenza (#1) 2023 08/30/2018 DTaP/Tdap/Td (2 - Tdap) 08/31/2025 08/31/2015 Zoster/Shingles (1 of 2) 2044 MCV4 Completed 03/22/2012 HepA Completed 02/28/2013, 03/22/2012 HPV Vaccine Aged Out No longer eligi ble based on patient's age to complete this topic Hib Aged Out No longer eligi ble based on patient's age to complete this topic IPV (Polio) Aged Out No longer eligi ble based on patient's age to complete this topic Pneumococcal Aged Out No longer eligi ble based on patient's age to complete this topic Care Teams Copyholder Relationship Specialty Start Date End Date No Primary/Referring, Phy PCP - General 06/03/17
--- OUTSIDE RECORDS SUMMARY | 2024-01-26 11:55 | XMS_ITS | Clinical Summary ---
Author Name Unknown Organization [facility] Address [place], [place] [address] Care Team Providers Care Top Icer Name Role Phone West Jha MD Primary Care Provider [phone] Allergies Active Allergy Reactions Criticality Noted Date Comments Iodinated Contrast Media Hives 07/31/2016 Glucosamine Hives 04/27/2017 Levofloxacin Anaphylaxis High 06/12/2011 Metrizamide Hives 10/04/2017 Metronidazole Itching,Other - Describe In Comment Field Low 07/25/2018 Mouth itching, dry mouth Mouth itching, dry mouth Mouth itching, dry mouth Mouth itching, dry mouth Mouth itching, dry mouth Mouth itching, dry mouth Mouth itching, dry mouth Mouth itching, dry mouth Morphine *Unknown 10/04/2017 Pt not sure what reaction was, was in previous records Mushroom Rash 04/27/2017 Bumps in the back of er throat Nut - Unspecified Itching 10/04/2017 Shellfish Containing Products Angioedema 04/10/2018 Tree Nut Angioedema 04/10/2018 Hydrocodone-Acetaminoph en Hives 07/31/2016 Medications Medication Sig Dispensed Refills Start Date End Date Status albuterol HFA (PRO-AIR; VENTOLIN; PROVENTIL) 90 mcg/actuation inhaler Inhale 2 Puffs by mouth. 05/01/2020 Active EPINEPHrine (EPIPEN) 0.3 mg/0.3 mL injection INJECT 0.3ML INTO THE MUSCLE ONCE FOR 1 DOSE 12/15/2021 Active mometasone (ASMANEX TWISTHALER) 220 mcg/ actuation (60) inhaler Inhale 1 Puff by mouth. 11/05/2020 Active oxyCODONE-acetamino phen (Percocet) 5-325 mg per tabletIndications:A bdominal pain, generalized Take 1 Tablet by mouth every 4 hours if needed for Pain. Max acetaminophen dose: 4000mg in 24 hrs. 10 Tablet 09/01/2023 Active ondansetron (ZOFRAN ODT) 4 mg disintegrating tablet DISSOLVE 1 TABLET ON THE TONGUE EVERY 6 HOURS NEEDED 09/17/2023 Active dextroamphetamine-a mphetamine (Adderall XR) 20 mg Extended-Release capsuleIndications: Attention deficit hyperactivity disorder (ADHD), combined type Take 2 Capsules (40 mg) by mouth once daily. 60 Capsule 11/23/2023 Active dextroamphetamine-a mphetamine (Adderall XR) 20 mg Extended-Release capsuleIndications: Attention deficit hyperactivity disorder (ADHD), combined type Take 2 Capsules (40 mg) by mouth every morning. 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 Plan: Pap/HPV due 02/2025 Leg pain 04/13/2018 07/12/2022 Low back pain potentially as sociated with radiculopathy 04/10/2018 07/12/2022 Fall 04/10/2018 07/12/2022 ADHD 04/10/2018 07/12/2022 Encounters Date Type Department Care Team Description 11/22/2023 Refill [facility] [address] [place] [address] West Jha MD Refill Request (dextroamphetamine-amphe tamine (Adderall XR) 20 mg Extended-Release capsule) from Last 3 Months Immunizations Name Administration Dates Next Due Hepatitis A (Adult) 02/28/2013 Hepatitis A (Peds) 03/22/2012 Hepatitis A, Unspecified 02/28/2013,03/22/2012 Influenza A (H1N1), Inactivated 11/06/2009 Influenza, IIV3 (Age 6-35 mos) 07/04/2012 Influenza, IIV4 10/05/2019,08/30/2018,09/07/2015 Meningococcal Vaccine (Menactra) 03/22/2012 Tdap 08/31/2015,03/22/2012 Social History Tobacco Use Types Packs/Day Years Used Date Smoking Tobacco: Never Smokeless Tobacco: Never Alcohol Use Standard Drinks/Week Comments Yes 0 (1 standard drink = 0.6 oz pur e alcohol) occasional usage PHQ-2 Answer Date Recorded PHQ-2 TOTAL SCORE 0 10/12/2023 Social Connections Answer Date Recorded Frequency of Communication with Friends and Fami ly Not on file 03/15/2022 Sex and Gender Information Value Date Recorded Sex Assigned at Not on file Gender Identity Not on file Sexual Orientation Not on file Obstetrics History Para Term AB IAB SAB Ectopic Multiple Livin g Live Births 1 1 1 1 1 Date Outcome GA Total Labor Labor/2nd/3rd Weight Sex Delivery Anes PTL [place] A1 A5 Name Cl in 11/19 Term 3.63 kg (8 lb) M , B Yasemin chelsi [place] Last Filed Vital Signs Vital Sign Reading Time Taken Comments Blood Pressure 110/80 09/01/2023 10:37 AM OPERATIONS LABEL CLERK Pulse 76 09/01/2023 10:37 AM OPERATIONS LABEL CLERK Temperature 36.9 ??C (98.4 ??F) 08/19/2022 9:39 AM CD T Respiratory Rate 16 08/19/2022 9:39 AM CDT Oxygen Saturation 100% 08/19/2022 9:39 AM CDT Inhaled Oxygen Concentration - - Weight 72.1 kg (159 lb) 09/01/2023 10:37 AM OPERATIONS LABEL CLERK Height 170 cm (5' 6.93) 09/01/2023 10:37 AM OPERATIONS LABEL CLERK Body Mass Index 24.96 09/01/2023 10:37 AM OPERATIONS LABEL CLERK Plan of Treatment Health Maintenance Due Date Last Done Comments Pneumococcal series for age 6-64 (1 of 2 - PCV) 2000 HIV for age 15-65 2009 Hepatitis C screening for ag e 18-79 2012 COVID-19 vaccine series ( season) 2023 Influenza for age 9-49 06/23/2024 9, 08/30/2018, 09/07/2015, Additional history exists BMI (ht and wt on same day) for age 18+ 09/01/2024 09/01/2023, 07/12/2022, 03/15/2022 Depression screening for age 12+ 10/12/2024 10/12/2023, 03/17/2022, 03/15/2022 Pap test for age 21-65 03/15/2025 03/15/2022 Tetanus booster 08/31/2025 08/31/2015, 03/22/2012 Tdap Completed 08/31/2015, 03/22/2012 Procedures Procedure Name Priority Date/Time Associated Diagnosis Comments MEDICINE ASSISTANT THIN PREP PAP SCREEN IMAGED Routine 03/15/2022 11:40 AM CDT Encounter for screening for cervical cancer from Last 3 Months or Most Recently Relevant to Health Maintenance Results * MEDICINE ASSISTANT THIN PREP PAP SCREEN IMAGED (03/15/2022 11:40 AM CDT) Case Report Gynecologic Cytology Report ? Case: [id number] ? Authorizing Provider: ??Queenie Nguyen NP ?Collected: ? 03/15/2022 1140 ? Ordering Location: ? [facility] ? Received: ?03/15/2022 1300 ? Clinic ? First Screen: ?[place] [place] ? Specimen: ?MEDICINE ASSISTANT ThinPrep Vial Screening, Cervical ? 03/31/2022 3:33 PM CDT [facility] [place] [facility] INTERPRETATION/ RESULT NEGATIVE FOR INTRAEPITHELIAL LESION OR MALIGNANCY (NIL) (none) 03/31/2022 3:33 PM CDT [facility] IMEN ADEQUACY Satisfactory for evaluation Endocervical component present 03/31/2022 3:33 PM CDT [facility] HPV REQUEST HPV if ASCUS 03/31/2022 3:33 PM CDT [facility]AL [facility] Date of LMP 03/01/2022 03/31/2022 3:33 PM CDT [facility] Last Pap Date Ukn 03/31/2022 3:33 PM CDT [facility] Last Pap Result First Pap/Unknown 3:33 PM CDT [facility] Abnormal Pap or Stryker Bx in last 5 years No 03/31/2022 3:33 PM CDT [facility] Menstrual Status Regular Periods 03/31/2022 3:33 PM CDT [facility] Stryker Bx Done Today No 03/31/2022 3:33 PM CDT [facility] Additional Information None given 03/31/2022 3:33 PM CDT [facility]- EN[facility]AL LAB[facility] Comment: Cytology is screened at [facility] - [address], [place] [address] and [facility] - [address] [place] [address] and [facility] - [address] [place] [address] Interpreted at [facility] [facility] - [address], [place] [address] Automated Review Successful 03/31/2022 3:33 PM CDT [facility] Comment:Specimen processed s uccessfully by automated phone operator device, Thy[employer] BiosciencesPrep Imaging System, [employer] Note The pap test is a screening technique, not a diagnostic procedure. It is used primarily to screen for squamous cancers and precursor lesions. Published studies have shown that it is subject to both false negative and false positive results. The pap test should not be used as the sole means to diagnose or exclude pre-malignant and malignant lesions. 03/31/2022 3:33 PM CDT [facility] Other (Cervical) Non-Blood / Unknown 03/15/2022 11:40 AM CDT 03/15/2022 1:00 PM CDT Queenie Nguyen NP PATHOLOGY/CYTOLOGY [facility] [address] [place] [address], [place] from Last 3 Months or Most Recently Relevant to Health Maintenance Advance Directives * Full Code (Latest Code Status on File) Date Activated Date Inactivated Comments 04/10/2018 6:31 PM 04/14/2018 3:05 AM Care Teams Top Icer Relationship Specialty [place] [address] [place] [address] PCP - General Family Practice 09/01/23
--- OUTSIDE RECORDS SUMMARY | 2024-01-26 11:55 | XMS_ITS | Encounter Summary ---
Author Name Unknown Organization [facility] Address [address] [place] [id number] Care Team Providers Care Technical Publications Writer Name Role Phone Elsewhere, Pcp Primary Care Provider Unavailabl e Reason for Visit * Reason Comments Rash Encounter Details Date Type Department Care Team (Late st Contact Info) Description 11/13/2023 4:40 PM [employer] Telemedicine [facility] [place] [address] [place] [address] Joaquin Kim, TRISTAN, C.N.P., M.S.N. [address] [place] [id number] Rash (Primary Dx) Social History Tobacco Use Types Packs/Day Years Used Date Smoking Tobacco: Never Smokeless Tobacco: Never Alcohol Use Standard Drinks/Week Comments Yes 0 (1 standard drink = 0.6 oz pur e alcohol) socially [facility] Utilities Answer Date Recorded In the past 12 months has e electric, gas, oil, or water company threatened to [...] money to buy more. Never true 11/13/19 24 Within the past 12 months, t he [...] your living situation today? I have a [facility] place to live 11/13/2023 Sex and Gender Information Value Date Recorded Sex Assigned at Female 11/13/2023 4:09 PM [employer] Gender Identity Female 11/13/2023 4:09 PM [employer] Sexual Orientation Straight 11/13/2023 4: 09 PM [employer] documented as of this encounter Progress Notes * Joaquin Kim APRN, C.NDarío., M.S.N. - 11/13/2023 4:40 PM CST CHIEF COMPLAINT / REASON FOR VISIT Consult conducted via real-time audio/video technology by David Kim APRN, C.NDarío., M.S.N. in [facility] to the patient in their personal home. SUBJECTIVE HISTORY OF PRESENT ILLNESS #1 Rash Video visit by Patient arranged today to discuss Rash I spoke with the patient by video visit. Queenie is a very pleasant nontoxic- appearing 28-year-old female who presents by video visit for bilateral hyperhidrosis. She does have a previous history of this diagnosis, she was seen in clinic on 07/29/2022, diagnosed and treated with Kenalog steroid cream. She is awaiting Botox appointments in the next couple of months. Her Kenalog prescription has and she would like further evaluation today. She denies fevers, chills, body aches, flu-like symptoms, drainage from the area, or other signs of a systemic infection. She has used Lavender oil with some improvement in condition. She would like further evaluation, no other concerns noted. Two patient identifier was completed prior to starting the visit. The patient was informed that there may be a charge incurred from this virtual visit. ALLERGIES Allergies Allergen Reactions Glucosamine Hives (Reselect Reaction) Hydrocodone-Acetaminophen Hives (Reselect Reaction) Iodinated Contrast Media Hives (Reselect Reaction) Levofloxacin Anaphylaxis Metrizamide Hives (Reselect Reaction) Morphine Other (see comments) Pt not sure what reaction was, was in previous records Mushroom Other (see comments) Bumps in the back of her throat Nut - Unspecified Itching Shellfish Containing Products Angioedema (Reselect Reaction) Metronidazole Itching Mouth itching, dry mouth PAST MEDICAL / SURGICAL HISTORY Past Medical History: Diagnosis Date Other Viral Meningitis (HCC) 04/2017 Past Surgical History: Procedure Laterality Date SECTION 10/2015 PHYSICAL EXAM(video visit exam): General: Alert, no acute distress, non-toxic appearing. Talking in full sentences. Eyes: Without conjunctival injection, no drainage present. Nose: Patent, no drainage present. Skin: [place], warm, dry. Armpits show possible hyperhidrosis bilateral. ASSESSMENT / PLAN #1 Rash - triamcinolone (KENALOG) 0.1 % cream; Apply 1 Application topically 2 (two) times a day. Apply in a thin layer to affected areas for up to two weeks, Starting Mon11/13/2023, NormalPlease contact David Kim APRN, C.N.P., M.S.N. for questions at [phone]. Queenie is a very pleasant 28-year-old female who I spoke with by video visit today for a rash to her bilateral armpits. After video visit examination this looks like hyperhidrosis. Using shared decision making with the patient today, the plan will be to treat her with topical Kenalog cream and haveclose follow-up with primary care provider for any change in condition. Patient is in agreement with this plan and will follow-up as instructed. All questions answered. Emergent symptoms were discussed in detail that would warrant acute evaluation. I personally spent a total of 20 minutes in [id number] time performing a review of the recordand/or discussion with the patient/caregiver as described above. Consult conducted via real-time audio/video technology by David Kim APRN, C.N.P., M.S.N. in [facility] to the patient in [facility] room. 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
== END 2024-01-18 13:28 | disposition home or self-care (01) ==
LOC: NFLDREF 01-19 06:39
PROVIDERS: Visit Provider Advanced Practice Midwife
DX: Z34.90 Encounter for supervision of normal pregnancy, unspecified, unspecified trimester (principal)
CPT/HCPCS: 84702

== ENCOUNTER 2024-01-24 12:24 | Outpatient (CLI) | payer OTHER, BC, SELFPAY | END 2024-01-24 12:25 | disposition home or self-care (01) | LOC: LAB 12:28 | PROVIDERS: Visit Provider Advanced Practice Midwife | DX: Z34.91 Encounter for supervision of normal pregnancy, unspecified, first trimester (principal) | CPT/HCPCS: 36415; 84702 ==